=== PATIENT | female | born 1945 | race Caucasian/White ===

== ENCOUNTER 2017-08-15 09:02 | Emergency (ER) | payer OTHER ==
[~2017-08-15] VITALS: Ht 167.6 cm; Wt 108.9 kg
[~2017-08-15 09:02] MED LIST: BACL10; BENA20 PO; Desyrel50 MG; ESCI20 PO; FURO20 PO; Flonase 0.05% N16 GM; GABA600 PO; METPRE4DP PO; MONT10T PO; OMEPRAZOLE MAGN20 MG; PREG75 PO; QVAR7.3 G1 IH; SIMV40 PO
[2017-08-15] MEDS ORDERED: OXYC1TAB11 PO (09:57)
[2017-08-15] MEDS ORDERED: Percocet 10-321 EACH PO (10:39)
[2018-05-29] MEDS ORDERED: BENA20 (09:19)
== END 2017-08-15 10:51 | disposition home or self-care (01) ==
LOC: ER 09:02
DX: M51.36 Other intervertebral disc degeneration, lumbar region (principal); R20.8 Other disturbances of skin sensation; G89.29 Other chronic pain; Z79.891 Long term (current) use of opiate analgesic; Z79.899 Other long term (current) drug therapy; Z98.890 Other specified postprocedural states; Z98.51 Tubal ligation status; Z87.891 Personal history of nicotine dependence
CPT/HCPCS: 93971; 99284

== ENCOUNTER 2020-04-23 08:06 | Day surgery (SDC) | payer OTHER ==
[~2020-04-23 08:06] MED LIST changes: +BENA20; +OXYC1TAB11 PO; +Percocet 10-321 EACH PO
--- NOTE | 2020-04-23 08:49 | NUR ---
Ambulatory in Day Surgery. History, Chart, Medications and Allergies reviewed before start of procedure. Pre-Op teaching done. Pt verbalizes understanding. HR 60-62. iv placed right AC
--- NOTE | 2020-04-23 09:10 | NUR ---
TO CT, HR STABLE AT THIS TIME.
--- NOTE | 2020-04-23 09:16 | NUR ---
CT CX PER RADIOLOGIST.
--- NOTE | 2020-04-23 09:33 | NUR ---
Discharge instructions reviewed with patient. Patient verbalizes understanding. Copy given to patient to take home. Pt ambulated to private car.
== END 2020-04-23 22:36 | disposition home or self-care (01) ==
LOC: CT 08:06 → ORD 08:06 → CT 09:00 → ORD 22:36
DX: I25.10 Atherosclerotic heart disease of native coronary artery without angina pectoris (principal); I11.9 Hypertensive heart disease without heart failure; E78.5 Hyperlipidemia, unspecified; J45.909 Unspecified asthma, uncomplicated; Z79.899 Other long term (current) drug therapy; Z87.891 Personal history of nicotine dependence; Z88.8 Allergy status to other drugs, medicaments and biological substances
CPT/HCPCS: 75571

== ENCOUNTER 2020-05-21 06:47 | Day surgery (SDC) | payer OTHER ==
[~2020-05-21] VITALS: Ht 167.6 cm; Wt 109.0 kg
[~2020-05-21 06:47] MED LIST changes: -BACL10; +BACL10 PO; -BENA20; +PREG100 PO; -PREG75 PO
[2020-05-21] MEDS ORDERED: ASPI81CH PO (07:25)
[2020-05-21] MEDS ORDERED: ATOR40TA PO (07:26)
[2020-05-21] MEDS ORDERED: METO25ER PO (07:26)
[2020-05-21] MEDS ORDERED: NITR.4SL SL (07:27)
[2020-05-21] MEDS ORDERED: PROAIR RESPICL90 MCG INH (07:30)
[2020-05-21] MEDS ORDERED: Triamcinolone A15 G4 TOP (07:31)
[2020-05-21] MEDS ORDERED: IPRAT-ALBUT 0.5-3 ML INH (07:32)
[2020-05-21] MEDS ORDERED: VOLTAREN ARTHRI20 GM TOP (07:33)
--- NOTE | 2020-05-21 09:46 | NUR ---
DR JARQUIN AT BEDSIDE TO DISCUSS IMAGING RESULTS WITH PATIENT AND SON.
--- NOTE | 2020-05-21 10:43 | NUR ---
TR BAND DEFLATION STARTED, 4 CC AIR REMOVED, TR BAND REMAINS ON RIGHT WRIST. PT HAS DENIES ANY NEEDS AT THIS TIME. VSS. CALL LIGHT IN REACH.
--- NOTE | 2020-05-21 11:00 | NUR ---
TR BAND FULLY DEFLATED, SITE APPEARS SOFT NON TENDER WITH NO ACTIVE EXTERNAL BLEEDING, WILL CONTINUE TO MONITOR.
--- NOTE | 2020-05-21 11:51 | NUR ---
TR BAND REMOVED FROM RIGHT WRIST, RED CLOTH DOT DRESSING APPLIED. ARM BOARD AND SLING ON RIGHT ARM/WRIST. SITE SOFT NON TENDER WITH NO ACTIVE BLEEDING, OOZING, OR PAIN NOTED. IV REMOVED FROM LAC WITH CATH INTACT, PRESSURE DRESSING APPLIED. PT SON HERE TO DRIVE HER HOME, FOLLOW UP APT RESCHEDULED FOR TOMORROW SO PT AND SON CAN DISCUSS PLAN OF CARE WITH CEZAR SUAREZ NP. ENCOURAGED TO FOLLOW UP SCHEDULED. TAKEN OUT TO PRIVATE VEHICLE VIA W/C. NO ACUTE DISTRESS NOTED AT TIME OF DISCHARGE.
== END 2020-05-21 12:05 | disposition home or self-care (01) ==
LOC: MHTC 06:47
PROC: B201YZZ Plain Radiography of Multiple Coronary Arteries using Other Contrast (ICD-10-PCS; principal; 2020-05-21)
PROC: 4A023N7 Measurement of Cardiac Sampling and Pressure, Left Heart, Percutaneous Approach (ICD-10-PCS; principal; 2020-05-21)
DX: I25.118 Atherosclerotic heart disease of native coronary artery with other forms of angina pectoris (principal); I25.82 Chronic total occlusion of coronary artery; J45.909 Unspecified asthma, uncomplicated; E78.5 Hyperlipidemia, unspecified; I11.9 Hypertensive heart disease without heart failure; M47.9 Spondylosis, unspecified; Z79.899 Other long term (current) drug therapy; Z79.82 Long term (current) use of aspirin; Z87.891 Personal history of nicotine dependence; Z88.8 Allergy status to other drugs, medicaments and biological substances
CPT/HCPCS: 76937; 85347; 93005; 93010; 93458; 99152; C1769; C1894; J1644; J2250; J3010; J7030; J7050; Q9967

== ENCOUNTER 2020-08-01 13:51 | Emergency (ER) | payer OTHER ==
[~2020-08-01] VITALS: Ht 167.6 cm; Wt 104.3 kg
[~2020-08-01 13:51] MED LIST changes: +ASPI81CH PO; +ATOR40TA PO; +IPRAT-ALBUT 0.5-3 ML INH; +METO25ER PO; +NITR.4SL SL; +PROAIR RESPICL90 MCG INH; +Triamcinolone A15 G4 TOP; +VOLTAREN ARTHRI20 GM TOP
[2020-08-01 14:49] LABS: BASOPHILS PERCENT AUTO 1 % (0-2); EOSINOPHILS ABSOLUTE AUTO 1.18 K/mm3 (0.00-0.68); EOSINOPHILS PERCENT AUTO 14 % (0-6); Hematocrit 37.9 % (33.0-51.0); Hemoglobin 11.5 g/dL (11.5-16.0); IMMATURE GRAN ABSOLUTE AUTO 0.01 K/mm3 (0.00-0.10); IMMATURE GRAN PERCENT AUTO 0 % (0-1); LYMPHOCYTES ABSOLUTE AUTO 1.51 K/mm3 (0.84-5.20); LYMPHOCYTES PERCENT AUTO 18 % (21-46); MONOCYTES ABSOLUTE AUTO 0.78 K/mm3 (0.16-1.47); MONOCYTES PERCENT AUTO 9 % (4-13); Mean Corpuscular HGB 27.6 pg (26.0-34.0); Mean Corpuscular HGB Conc 30.3 g/dL (31.5-36.5); Mean Corpuscular Volume 91 fL (80-100); NEUTROPHILS ABSOLUTE AUTO 4.81 K/mm3 (1.96-9.15); NEUTROPHILS PERCENT AUTO 57 % (41-73); Platelet Count 419 K/mm3 (150-400); RDW Coefficient Variation 13.2 % (11.7-14.2); RDW Standard Deviation 44.7 fL (35.1-46.3); Red Blood Cell Count 4.16 M/mm3 (3.80-5.20); White Blood Cell Count 8.39 K/mm3 (4.00-11.30)
[2020-08-01 15:21] LABS: Alanine Aminotransfer (ALT/SGP 16 U/L (12-78); Albumin, Blood 3.1 g/dL (3.4-5.0); Albumin/Globulin Ratio 0.9 (0.8-1.8); Alk Phos 116 U/L (50-136); Anion Gap 5 mmol/L (6-16); Aspartate Aminotrans (AST/SGOT 12 U/L (12-37); Bilirubin, Total 0.9 mg/dL (0.1-1.0); Blood Urea Nitrogen 12 mg/dL (8-24); Bun/Creatinine Ratio 17.3 (12.0-20.0); CO2, Blood 28 mmol/L (21-32); Calcium, Blood 9.2 mg/dL (8.5-10.1); Chloride, Blood 107 mmol/L (98-108); Creatinine, Blood 0.69 mg/dL (0.40-1.00); Globulin, Blood 3.5 g/dL (2.2-4.0); Glomerular Filtration Rate >60 (60-); Glucose, Blood 99 mg/dL (70-99); Sodium, Blood 140 mmol/L (136-145); Total Protein, Blood 6.6 g/dL (6.4-8.2); Troponin I <0.015 ng/mL (0.000-0.040)
[2020-08-01] MEDS ORDERED: NITR.4SL TD (17:17)
[2020-08-01] MEDS ORDERED: MELO7.5 PO (17:18)
== END 2020-08-01 18:03 | disposition home or self-care (01) ==
LOC: ER 13:51
PROVIDERS: Physician Assistant
DX: R00.2 Palpitations (principal); R06.00 Dyspnea, unspecified; Z79.82 Long term (current) use of aspirin; Z79.51 Long term (current) use of inhaled steroids; Z95.1 Presence of aortocoronary bypass graft; Z79.899 Other long term (current) drug therapy; Z87.891 Personal history of nicotine dependence
CPT/HCPCS: 36415; 71046; 80053; 84484; 85025; 93005; 93010; 99285-25

== ENCOUNTER 2021-07-30 08:37 | Inpatient (IN) | payer OTHER ==
[~2021-07-30] VITALS: Ht 162.6 cm; Wt 117.3 kg
[~2021-07-30 08:37] MED LIST changes: +MELO7.5 PO; +NITR.4SL TD
[2021-07-30 08:54] LABS: Bicarbonate Venous 19.8 mmol/L (24.0-30.0); PO2 Venous 37.2 mmHg (38-42); pH Blood Venous 7.21 (7.34-7.37)
[2021-07-30 09:05] LABS: BASOPHILS ABSOLUTE AUTO 0.06 K/mm3 (0.00-0.23); BASOPHILS PERCENT AUTO 1 % (0-2); EOSINOPHILS ABSOLUTE AUTO 0.03 K/mm3 (0.00-0.68); EOSINOPHILS PERCENT AUTO 1 % (0-6); Hematocrit 42.3 % (33.0-51.0); Hemoglobin 12.8 g/dL (11.5-16.0); IMMATURE GRAN ABSOLUTE AUTO 0.02 K/mm3 (0.00-0.10); IMMATURE GRAN PERCENT AUTO 0 % (0-1); LYMPHOCYTES ABSOLUTE AUTO 0.97 K/mm3 (0.84-5.20); LYMPHOCYTES PERCENT AUTO 15 % (21-46); MONOCYTES ABSOLUTE AUTO 0.45 K/mm3 (0.16-1.47); MONOCYTES PERCENT AUTO 7 % (4-13); Mean Corpuscular HGB 29.1 pg (26.0-34.0); Mean Corpuscular HGB Conc 30.3 g/dL (31.5-36.5); Mean Corpuscular Volume 96 fL (80-100); NEUTROPHILS ABSOLUTE AUTO 4.89 K/mm3 (1.96-9.15); NEUTROPHILS PERCENT AUTO 76 % (41-73); Platelet Count 312 K/mm3 (150-400); RDW Coefficient Variation 13.8 % (11.7-14.2); RDW Standard Deviation 49.2 fL (35.1-46.3); White Blood Cell Count 6.42 K/mm3 (4.00-11.30)
[2021-07-30 09:25] LABS: Calcium, Ionized (POC) 1.19 mmol/L (1.10-1.46); Chloride (POC) 107 mmol/L (98-108); Glucose (ISTAT POC) 109 mg/dL (70-99); Hemoglobin (POC) 12.2 g/dL (12.0-16.0); Potassium (POC) 3.2 mmol/L (3.5-5.5); Sodium (POC) 141 mmol/L (135-148); Total CO2 (POC) 23 mmol/L (21-32)
[2021-07-30 09:27] LABS: BAND PERCENT MAN 34 % (0-8); BASOPHILS ABSOLUTE MAN 0.06 K/mm3 (0.00-0.23); BASOPHILS PERCENT MAN 1 % (0-2); EOSINOPHILS PERCENT MAN 0 % (0-6); LYMPHOCYTES PERCENT MAN 11 % (21-46); METAMYELOCYTE ABSOLUTE MAN 0.12 K/mm3 (0.00-0.00); METAMYELOCYTE PERCENT MAN 2 % (0-0); MONOCYTES ABSOLUTE MAN 0.25 K/mm3 (0.16-1.47); MONOCYTES PERCENT MAN 4 % (4-13); MYELOCYTE ABSOLUTE MAN 0.32 K/mm3 (0.00-0.00); MYELOCYTE PERCENT MAN 5 % (0-0); NEUTROPHILS ABSOLUTE MAN 4.94 K/mm3 (1.96-9.15); SEG NEUTROPHILS PERCENT MAN 43 % (41-73); TOTAL CELLS COUNTED 100
[2021-07-30 09:36] LABS: Albumin, Blood 2.7 g/dL (3.4-5.0); Albumin/Globulin Ratio 0.8 (0.8-1.8); Bun/Creatinine Ratio 13.9 (12.0-20.0); Calcium, Blood 8.8 mg/dL (8.5-10.1); Creatine Kinase MB 14.5 ng/mL (0.0-3.6); Creatinine, Blood 1.87 mg/dL (0.40-1.00); Globulin, Blood 3.2 g/dL (2.2-4.0); Total Protein, Blood 5.9 g/dL (6.4-8.2)
[2021-07-30 09:40] LABS: Troponin I 0.515 ng/mL (0.000-0.040)
[2021-07-30 10:02] LABS: Source, Urine Catheter
[2021-07-30 10:05] LABS: Appearance, Urine Cloudy (Clear); Bilirubin, Urine Neg (Neg); Blood, Urine 1+ (Neg); Color, Urine Yellow (P-Yellow); Glucose Qualitative, Urine Neg (Neg); Ketones, Urine Neg (Neg); Leukocyte Esterase, Urine 2+ (Neg); Nitrite, Urine Neg (Neg); Protein, Urine 2+ (Neg); Specific Gravity, Urine 1.015 (1.003-1.022); Urobilinogen, Urine NORM (Normal)
[2021-07-30 10:10] LABS: Influenza A, PCR NEGATIVE (NEGATIVE); Influenza B, PCR NEGATIVE (NEGATIVE); Resp Syncytial Virus, PCR NEGATIVE (NEGATIVE); SARS-Cov-2 (COVID-19) PCR, MMC NEGATIVE (NEGATIVE)
[2021-07-30 10:33] LABS: Red Blood Cells, Urine 0-2 /hpf (0-2); Squamous Epithelial Cells Few /hpf (Few)
[2021-07-30 10:34] LABS: Bacteria Mod /hpf; Mucus Light (0-Heavy)
[2021-07-30 10:36] LABS: U Amphetamine Screen Not Detected; U Barbituate Screen Not Detected; U Benzodiazapine Screen Not Detected; U Buprenorphine Screen Not Detected; U Cannabinoids Screen Not Detected; U Cocaine Screen Not Detected; U Methadone Screen Not Detected; U Methamphetamine Screen Not Detected; U Opiates Screen Not Detected; U Oxycodone Screen DETECTED; U Phencyclidine Screen Not Detected; U Propoxyphene Screen Not Detected
--- NOTE | 2021-07-30 11:54 | NUR ---
APPROX 1045- PT PLACED ON BIPAP PER DR ORDER. SETTINGS: 14/6, 801%, f12, IT 1.0, RISE 2 ACT: VT 462, f14, MINV 6.9, PIP 16, PT TRIG 2 ALARMS: 40/10, 1500/200, HIP 30/4 LMINV 4.0, LIP 20 O2 SAT= 96% BS= DIFFUSE T/O. NO WHEEZES. PT CHAR MED MASK. RNS AT BEDSIDE.
--- NOTE | 2021-07-30 12:26 | NUR ---
Spoke to pt's grandson Brady, he lives in [facility] currently. He states he pt's next of kin, as she is estranged from both of her children "at no fault of hers" according to Brady. He also tells me he's noticed some slight memory changes recently. He states she takes pain medication for her back, but "not often, and hates taking them". He states she is taking care of her boyfriend who is on hospice. He thinks this is causing a lot of extra strain and pressure on her, and she isn't taking care of herself as well lately. He will be waiting to hear from hospital staff before deciding when or if he will come up to [place]. Palliative care will remain involved in this case as needed.
--- NOTE | 2021-07-30 13:22 | NUR ---
Face sheet updated to reflect correct contacts.
--- NOTE | 2021-07-30 14:45 | NUR ---
Echocardioghram using 0.50ml of Definity contrast performed.
[2021-07-30 16:12] LABS: PCO2 Venous 57.7 mmHg (38-42)
[2021-07-30 16:13] LABS: Base Excess Venous -5.7 mmol/L; Bicarbonate Venous 19.4 mmol/L (24.0-30.0)
--- NOTE | 2021-07-30 18:18 | NUR ---
Placed a call to pt's roommate, Zandra. She reports being "very close to Josy", and states they've been roommatees of quite some time. Zandra reports that pt's boyfriend Jadiel, who is on hospice, has been taken in by pt's friends, Denis and Yvonne. Zandra asks we let pt know that her boyfriend is ok when she is more coherent. Will remain available.
--- NOTE | 2021-07-30 19:47 | NUR ---
ASSUMED CARE OF PT AT 1915. REPORT RECEIVED AT BEDSIDE. PT CONTINUES ON NARCAN AT 2.6 MG PER HOUR, LEVOPHED AT 4 MCG'S PER MIN, VASOPRESSIN FOR BLOOD PRESSURE SUPPORT. PT WEARING BIPAP AT THIS TIME. MAINTAINS > 90 PERCENT SATURATION. WILL REVIEW CHART AND PLAN OF CARE.
--- NOTE | 2021-07-30 22:01 | NUR ---
PT, UNFORTUNATELY, VOMITS. WAS ABLE TO CLEAR WITH YAUNKEUR. PT DOES HAVE WEAK COUGH. UNCERTAIN IF SHE ASPIRATED ANY. DID CHANGE PT OFF BIPAP TO OXIMIZER. GOOD ORAL CARE DONE. DID PLACE 16 GERMAN NGT AND PLACED TO LOW WALL SUCTION. HAVE BEEN ABLE TO SLOWLY TITRATE NARCAN DRIP DOWN TO 1.5 MG/HOUR. OF NOTE: WHEN PT VOMITED, THIS RN AND ACCOUNTANCY PROFESSOR WAS AT BEDSIDE. PT ON OXIMIZER AT 6 L/M. PLACE TO MOUTH. PT MAINTAINS SATURATIONS > 93 PERCENT. PHONE CALL RECEIVED FROM PT'S NEIGHBOR - CORNELIA. AND PT'S DAUGHTER - JARED. LIMITED TO NO RECLEASE OF INFORMATION BEING SIGNED, AND PT BEING UNABLE TO GIVE CONSENT. WAS NOT ABLE TO GIVE UPDATE. PT'S DAUGHTER, JARED, STATES THAT HER SON (PT'S GRANDSON) WOULD BE THE APPROPRIATE PERSON FOR CONSENTS. PT OFF VASOPRESSIN AT THIS TIME. LEVOPHED AT 6 MCG'S/MIN. WILL TITRATE FURTHER ABLE.
[2021-07-30 23:13] LABS: Stool Occult Blood Guaiac 1 Pos (Neg)
--- NOTE | 2021-07-31 02:31 | NUR ---
HAVE BEEN ABLE TO TITRATE NARCAN TO OFF. PT DOES AWAKEN AND ASK FOR WATER. DOES NOT FOLLOW COMMANDS OR OPEN EYES. WILL MONITOR PT. LEVOPHED AT 10 MCG'S/MIN. PT MAINTAINS MAP > 65.
[2021-07-31 05:05] LABS: Hematocrit 36.5 % (33.0-51.0); Hemoglobin 11.1 g/dL (11.5-16.0); Mean Corpuscular HGB 28.3 pg (26.0-34.0); Mean Corpuscular HGB Conc 30.4 g/dL (31.5-36.5); Mean Corpuscular Volume 93 fL (80-100); Mean Platelet Volume 9.6 fL (9.1-12.4); Platelet Count 242 K/mm3 (150-400); RDW Coefficient Variation 14.2 % (11.7-14.2); RDW Standard Deviation 48.4 fL (35.1-46.3); Red Blood Cell Count 3.92 M/mm3 (3.80-5.20); White Blood Cell Count 13.07 K/mm3 (4.00-11.30)
[2021-07-31 05:15] LABS: PCO2 Arterial 46.1 mmHg (35-45); PO2 Arterial 73.6 mmHg (80-100); pH Blood Arterial 7.32 (7.35-7.45)
--- NOTE | 2021-07-31 05:43 | NUR ---
NO FURTHER EPISODES OF NAUSEA NOTED FROM PT. NGT HAS DRAINED APPROX 100 ML GREEN COLORED LIQUID. PT HAS BEEN BECOME MORE AWAKE AND LUCCID. IS ABLE TO STATE SHE IS AT THE HOSPITAL. CALL FROM PT'S DAUGHTER JARED RECEIVED TO CHECK ON PT. PT DOES GIVE VERBAL CONSENT FOR RELEASE OF INFO TO JARED AND GRANDSON SOHEILA. WILL CONTINUE TO MONITOR PT, AND WILL REPORT OFF TO ONCOMING RN.
[2021-07-31 06:09] LABS: Alanine Aminotransfer (ALT/SGP 69 U/L (12-78); Albumin, Blood 2.1 g/dL (3.4-5.0); Albumin/Globulin Ratio 0.7 (0.8-1.8); Alk Phos 68 U/L (50-136); Anion Gap 6 mmol/L (6-16); Aspartate Aminotrans (AST/SGOT 118 U/L (12-37); Blood Urea Nitrogen 33 mg/dL (8-24); Bun/Creatinine Ratio 23.2 (12.0-20.0); CO2, Blood 23 mmol/L (21-32); Chloride, Blood 114 mmol/L (98-108); Creatinine, Blood 1.42 mg/dL (0.40-1.00); Globulin, Blood 2.9 g/dL (2.2-4.0); Glomerular Filtration Rate 36 (60-); Glucose, Blood 123 mg/dL (70-99); Phosphorus, Blood 4.2 mg/dL (2.5-4.9); Potassium, Blood 4.4 mmol/L (3.5-5.5); Sodium, Blood 143 mmol/L (136-145); Vancomycin, Random 11.4 ug/mL
[2021-07-31 07:12] LABS: BAND PERCENT MAN 39 % (0-8); BASOPHILS PERCENT MAN 0 % (0-2); EOSINOPHILS PERCENT MAN 0 % (0-6); LYMPHOCYTES ABSOLUTE MAN 0.65 K/mm3 (0.84-5.20); LYMPHOCYTES PERCENT MAN 5 % (21-46); METAMYELOCYTE ABSOLUTE MAN 1.04 K/mm3 (0.00-0.00); METAMYELOCYTE PERCENT MAN 8 % (0-0); MONOCYTES ABSOLUTE MAN 1.04 K/mm3 (0.16-1.47); MONOCYTES PERCENT MAN 8 % (4-13); MYELOCYTE ABSOLUTE MAN 0.26 K/mm3 (0.00-0.00); MYELOCYTE PERCENT MAN 2 % (0-0); NEUTROPHILS ABSOLUTE MAN 10.06 K/mm3 (1.96-9.15); SEG NEUTROPHILS PERCENT MAN 38 % (41-73); TOTAL CELLS COUNTED 100
--- NOTE | 2021-07-31 18:28 | NUR ---
MEDICAL POA IS KAITLYNN GILMORE/FRIEND #[phone] SEE RECENT POLST/AD ON CHART - I was called to ICU to clarify who pt's surrogate medical decision maker is as grandson is listed as NOK and pt's children are estranged. There is an old AD on file from 2016, naming pt's former (who is currently on hospice and incapacitated) and another person who has not been in contact. Friend Kaitlynn contacted pt's nurse and provided faxed POLST and AD that has been completed in June of 2021. All of above communicated to RN and I spoke to Kaitlynn Gilmore on the phone to have her read contents of POLST and AD before she was able to fax it to us. Pt has been consistent in both AD in her wishes. She only changed her decision maker to Kaitlynn, since her former is not able to fulfill that role any longer. Kaitlynn wanted to be sure and confirm DNR status, NO CPR, NO intubation desired, no feeding tube per pt's AD for many years. Currently pt's orders are consistent with her documented wishes and Kaitlynn was informed of this. I gave Kaitlynn an updated on pt's status and explained the chain of events leading to hospitalization and ICU stay as we understand them. Kaitlynn was very appreciative and will update grand son and other family members, per pt's wishes. She reiterated that pt does not want information provided to either of her estranged children. Case conferenced with Dr Van, nursing re: all of above.
[2021-07-31] MEDS ORDERED: BACL10 PO (23:05)
[2021-08-01 05:20] LABS: BASOPHILS ABSOLUTE AUTO 0.11 K/mm3 (0.00-0.23); BASOPHILS PERCENT AUTO 1 % (0-2); Hematocrit 30.8 % (33.0-51.0); Hemoglobin 9.4 g/dL (11.5-16.0); LYMPHOCYTES ABSOLUTE AUTO 0.75 K/mm3 (0.84-5.20); LYMPHOCYTES PERCENT AUTO 6 % (21-46); MONOCYTES ABSOLUTE AUTO 0.48 K/mm3 (0.16-1.47); MONOCYTES PERCENT AUTO 4 % (4-13); Mean Corpuscular HGB 28.8 pg (26.0-34.0); Mean Corpuscular HGB Conc 30.5 g/dL (31.5-36.5); Mean Corpuscular Volume 95 fL (80-100); Mean Platelet Volume 9.9 fL (9.1-12.4); Platelet Count 167 K/mm3 (150-400); RDW Coefficient Variation 14.3 % (11.7-14.2); RDW Standard Deviation 50.1 fL (35.1-46.3); Red Blood Cell Count 3.26 M/mm3 (3.80-5.20); White Blood Cell Count 11.66 K/mm3 (4.00-11.30)
[2021-08-01 05:34] LABS: EOSINOPHILS ABSOLUTE AUTO 0.12 K/mm3 (0.00-0.68); EOSINOPHILS PERCENT AUTO 1 % (0-6); IMMATURE GRAN ABSOLUTE AUTO 1.33 K/mm3 (0.00-0.10); IMMATURE GRAN PERCENT AUTO 11 % (0-1); NEUTROPHILS ABSOLUTE AUTO 8.87 K/mm3 (1.96-9.15); NEUTROPHILS PERCENT AUTO 76 % (41-73)
--- NOTE | 2021-08-01 05:38 | NUR ---
SHIFT SUMMERY: NO ACUTE CHANGES OVERNIGHT. LEVOPHED HAS BEEN TITRATED TO OFF AT THIS TIME WITH PT MAINTAINING MAPS>65. SHE IS ALERT BUT CONFUSED. SHE DID PULL OUT HER NG TUBE BUT HAS HAD NO VOMITING OR COMPLAINTS OF NAUSEA. SHE WILL FOLLOW COMMANDS BUT HAS TO BE REMINDED FREQUENTLY OF THE ANSWERS TO QUESTIONS SHE HAS ASKED MANY TIMES. NO ACUTE DISTRESS OVERNIGHT.
[2021-08-01 05:39] LABS: BAND PERCENT MAN 13 % (0-8); BASOPHILS PERCENT MAN 0 % (0-2); EOSINOPHILS PERCENT MAN 0 % (0-6); LYMPHOCYTES ABSOLUTE MAN 0.81 K/mm3 (0.84-5.20); LYMPHOCYTES PERCENT MAN 7 % (21-46); METAMYELOCYTE ABSOLUTE MAN 0.69 K/mm3 (0.00-0.00); METAMYELOCYTE PERCENT MAN 6 % (0-0); MONOCYTES ABSOLUTE MAN 0.34 K/mm3 (0.16-1.47); MONOCYTES PERCENT MAN 3 % (4-13); NEUTROPHILS ABSOLUTE MAN 9.79 K/mm3 (1.96-9.15); SEG NEUTROPHILS PERCENT MAN 71 % (41-73); TOTAL CELLS COUNTED 100
[2021-08-01 05:49] LABS: Albumin, Blood 2.3 g/dL (3.4-5.0); Anion Gap 4 mmol/L (6-16); Blood Urea Nitrogen 24 mg/dL (8-24); Bun/Creatinine Ratio 28.6 (12.0-20.0); CO2, Blood 27 mmol/L (21-32); Calcium, Blood 8.5 mg/dL (8.5-10.1); Chloride, Blood 116 mmol/L (98-108); Creatinine, Blood 0.84 mg/dL (0.40-1.00); Glomerular Filtration Rate >60 (60-); Glucose, Blood 86 mg/dL (70-99); Phosphorus, Blood 2.2 mg/dL (2.5-4.9); Potassium, Blood 4.2 mmol/L (3.5-5.5); Sodium, Blood 147 mmol/L (136-145); Vancomycin, Random 9.2 ug/mL
--- NOTE | 2021-08-01 08:00 | NUR ---
ASSUMED CARE RECEIVED REPORT FROM ALLY ALBARRAN AT 0700. PT IS ALERT AND ORIENTED TO SELF AND PLACE ONLY. VERY SLOW TO RESPOND AND HAS TO BE REORIENTED AND REDIRECTED OFTEN. SHE BECOMES VERY IRRITABLE AND ASKS FOR A DRINK OF WATER, BUT IS CURRENTLY NPO. PO MEDS HELD AT THIS TIME. DR. MANCIA AT BEDSIDE AND ORDERED SPEECH EVAL. NARCAN GTT AT 2MG/HR. SPO2 >96% ON 3L VIA NC, LUNGS ARE CLEAR BUT DIMINISHED IN BASES. HR IS SINUS COBY TO SINUS RHYTHM 50-60'S. BP IS NORMOTENSIVE, MAP >65. ABDOMEN IS OBESE AND SOFT, BOWEL TONES HYPOACTIVE. RECTAL TUBE PATENT, DRAINING LIQUID DARK BROWN STOOL TO GRAVITY. CEDENO PATENT, DRAINING CLEAR YELLOW URINE TO GRAVITY. SKIN OVERALL C/D/I, BUT DOES HAVE SCATTERED BRUISING ON ARMS, AND A BANDAID TO LEFT FOREARM. ORDERS REVIEWED AND WILL TREAT PRESCRIBED.
--- NOTE | 2021-08-01 12:56 | NUR ---
PT'S POA, CORNELIA, CALLED AND RECEIVED UPDATE. SHE STATED SONNY HAS BASELINE DIFFICULTY WITH REMEMBERING HER TRAIN OF THOUGHT AND IS FORGETFUL. MEDICATION LIST OBTAINED AND GLAUCOMA GTT'S ORDERED.
--- NOTE | 2021-08-01 14:01 | NUR ---
PT TRANSPORTED TO CT FOR CT OF HEAD AT 1310, RETURNED TO ROOM AT 1335. VITALS STABLE AT THIS TIME.
--- NOTE | 2021-08-01 17:57 | NUR ---
PT REMAINED AWAKE T/O MOST OF THE DAY. SHE IS BECOMING MORE ALERT AND ORIENTED THE DAY PROGRESSES. NARCAN GTT HAS REMAINED OFF PREVIOUSLY CHARTED. SHE IS PLEASANT AND COOPERATIVE, ABLE TO FOLLOW COMMANDS, BUT IS VERY WEAK. HAS DIFFICULTY REMEMBERING WHAT SHE WAS TRYING TO SAY, WHICH IS APPARENTLY BASELINE FOR HER ACCORDING TO CORNELIA, HER POA. AFEBRILE T/O SHIFT. 3L O2 VIA NC REMAINS ON, SPO2 >95%, LUNGS DIM IN BASES. HR REMAINED SR TO SB, 50-70'S, BP NORMOTENSIVE T/O ENTIRE SHIFT, MAP >65. 300ML LIQUID, GREEN/BROWN STOOL OUT OF RECTAL TUBE, REMAINS PATENT AND DRAINING TO GRAVITY. CEDENO PATENT, 700ML OUT DARK YELLOW CLEAR URINE. PT CURRENTLY RESTING. WILL REPORT TO ONCOMING SHIFT.
--- NOTE | 2021-08-01 19:00 | NUR ---
ASSUMED CARE ASSUMED CARE OF PATIENT. AWAKE AND ALERT. ORIENTED TO SELF AND TO PLACE. STATES THAT IT IS 1983. NOT AWARE OF EVENTS BRINGING HER TO THE HOSPITAL. COOPERATIVE WITH CARE. ASSISTS WITH REPOSITIONING IN BED. MOVES ALL EXTREMITIES. COOPERATIVE WITH CARE. SPEECH IS CLEAR, BUT RESPONSE IS SLOW. ALSO SEEMS TO HAVE DIFFICULTY IN FINDING HER WORDS, BUT IS ABLE TO MAKE HER NEEDS KNOWN. DENIES C/O PAIN. DENIES INTENT TO HARM SELF NOW OR IN THE PAST. MONITOR SHOWS NSR, RATE 70s. REMAINS ON 2L NC. SLIGHTLY TACHYPNEIC, 26-28. RESPIRATIONS EVEN AND UNLABORED. DENIES C/O SOB/DYSPNEA. CEDENO PATENT AND DRAINING YELLOW URINE. RECTAL TUBE IN PLACE- DRAINING GREENISH-BROWN LIQUID STOOL. LR INFUSING AT 60CC/HR. SEE SHIFT ASSESSMENT FOR FULL ASSESSMENT.
[2021-08-02 05:02] LABS: Hematocrit 30.6 % (33.0-51.0); Hemoglobin 9.5 g/dL (11.5-16.0); Mean Corpuscular HGB 29.1 pg (26.0-34.0); Mean Corpuscular Volume 94 fL (80-100); Mean Platelet Volume 10.7 fL (9.1-12.4); Platelet Count 186 K/mm3 (150-400); RDW Standard Deviation 48.2 fL (35.1-46.3); Red Blood Cell Count 3.26 M/mm3 (3.80-5.20); White Blood Cell Count 13.29 K/mm3 (4.00-11.30)
[2021-08-02 05:50] LABS: Albumin, Blood 2.1 g/dL (3.4-5.0); Anion Gap 7 mmol/L (6-16); Blood Urea Nitrogen 24 mg/dL (8-24); Bun/Creatinine Ratio 36.2 (12.0-20.0); CO2, Blood 26 mmol/L (21-32); Calcium, Blood 8.4 mg/dL (8.5-10.1); Chloride, Blood 114 mmol/L (98-108); Creatinine, Blood 0.66 mg/dL (0.40-1.00); Glomerular Filtration Rate >60 (60-); Glucose, Blood 80 mg/dL (70-99); Phosphorus, Blood 2.3 mg/dL (2.5-4.9); Potassium, Blood 4.1 mmol/L (3.5-5.5); Sodium, Blood 147 mmol/L (136-145)
--- NOTE | 2021-08-02 06:08 | NUR ---
SHIFT SUMMARY NO ACUTE CHANGES DURING NOC. SLEPT INTERMITTENTLY. ROUSES EASILY TO STIMULI. CONTINUES TO BE ORIENTED TO SELF AND PLACE, BUT NOT TO DATE/TIME OR EVENTS. CONTINUES WITH SLOWED VERBAL RESPONSE AND DIFFICULTY WITH FINDING WORDS, BUT DOES SEEMED SOMEWHAT IMPROVED T/O NOC. MOVES ALL EXTREMITES AND ATTEMPTS TO ASSIST WITH REPOSTIONING. TOLERATING ICE CHIPS AND SPOONFULS OF H20 WITHOUT SIGNS OF ASPIRATION. CEDENO PATENT AND DRAINING TO GRAVITY. RECTAL TUBE IN PLACE, BUT OUTPUT HAS DECREASED. LR INFUSING AT 60CC/HR PER ORDER. WILL REPORT TO ONCOMING RN WHEN AVAILABLE.
[2021-08-02 06:18] LABS: BAND PERCENT MAN 16 % (0-8); BASOPHILS PERCENT MAN 0 % (0-2); EOSINOPHILS ABSOLUTE MAN 0.26 K/mm3 (0.00-0.68); EOSINOPHILS PERCENT MAN 2 % (0-6); LYMPHOCYTES ABSOLUTE MAN 0.39 K/mm3 (0.84-5.20); LYMPHOCYTES PERCENT MAN 3 % (21-46); MONOCYTES ABSOLUTE MAN 1.06 K/mm3 (0.16-1.47); MONOCYTES PERCENT MAN 8 % (4-13); NEUTROPHILS ABSOLUTE MAN 11.56 K/mm3 (1.96-9.15); SEG NEUTROPHILS PERCENT MAN 71 % (41-73); TOTAL CELLS COUNTED 100
--- NOTE | 2021-08-02 07:52 | NUR ---
ASSUMED CARE RECEIVED REPORT FROM ALLY THAPA, AT 0700. PT ALERT AND ORIENTED X3. ABLE TO STATE MONTH AND YEAR. CONFUSION SEEMS TO BE IMPROVING SINCE YESTERDAY, SHE IS STILL SOMEWHAT SLOW TO RESPOND AND HAS DIFFICULTY FINDING HER WORDS/TRAIN OF THOUGHT. CONTINUES TO TAKE SPOONFULS OF WATER/LIQUIDS WITHOUT DIFFICULTY OR SIGNS OF ASPIRATION. LUNGS ARE DIMINISHED T/O, 2L NC, SPO2 >96%. SINUS RHYTHM TO SINUS COBY, RATE IN 50-60'S. BP STABLE, MAP >65. RECTAL TUBE PATENT, GREEN/BROWN LIQUID OUTPUT, DRAINING TO GRAVITY. CEDENO PATENT, DRAINING YELLOW CLEAR URINE TO GRAVITY. ORDERS REVIEWED AND WILL TREAT PRESCRIBED.
--- NOTE | 2021-08-02 10:24 | NUR ---
CALL PLACED TO DR. REED TO RESTART PATIENT'S HOME LONG-ACTING STEROID INHALER. ORDERS GIVEN TO RESTART SYMBICORT 160/4.5 2PUFFS BID. ALSO DISCUSSED PT HAVING FREQUENT DIARRHEA. ORDERS TO BE PLACED FOR IMMODIUM.
--- NOTE | 2021-08-02 18:34 | NUR ---
PT CONTINUES TO IMPROVE MENTATION/CONFUSION THE DAY PROGRESSED. A/O X4, HOWEVER IS STILL SLOW TO FIND WORDS/THOUGHTS AT TIMES. SHE WAS CONFUSED ABOUT A PHONE CALL SHE PLACED AND WAS VERY WORRIED ABOUT HER . HOWEVER, IT WAS FOUND OUT THE PERSON SHE CALLED WAS THE WRONG PERSON AND IT WAS DIFFICULT TO CALM/REASSURE HER THAT HER IS OKAY AND IS STAYING WITH THE CORRECT PERSON, TRICIA GARCIAS. OXYGEN HAS REMAINED ON AT 1-2L NC, CURRENTLY AT 2L NC AND SPO2 LAST CHECKED WAS 99%. DYSPNEA/SOB WITH EXERTION. SHE IS ABLE TO AMBULATE WITH WALKER FROM BED TO COMMODE AND TO CHAIR WELL, BUT REMAINS VERY WEAK AND REQUIRES MODERATE ASSISTANCE. HR REMAINED SINUS COBY IN UPPER 50'S. BP STABLE. SHE CONTINUES TO HAVE FREQUENT LIQUID BOWEL MOVEMENTS, BUT THEY HAVE SLOWED SINCE IMMODIUM X3. RIGHT IJ CENTRAL LINE REMOVED AND COVERED WITH PETROLEUM AND TEGADERM, NO SIGNS OF BLEEDING OR HEMATOMA. SHE REMAINED AFEBRILE T/O SHIFT. CURRENTLY BACK IN BED AND RESTING, WILL REPORT TO ONCOMING SHIFT.
--- NOTE | 2021-08-02 19:34 | NUR ---
ASSUMPTION OF CARE: REPORT GIVEN BY CLEO. PT IS ALERT AND ORIENTED AT TIME OF ASSESSMENT. MED NO TELE STATUS. NO COMPLAINTS OF PAIN OR DISCOMFORT, NO S/S OF ACUTE DISTRESS NOTED AT TIME OF ASSESSMENT. NO NEEDS EXPRESSED.
--- NOTE | 2021-08-02 21:40 | NUR ---
PT ARRIVED IN RM 232 FROM ICU WHERE SHE WAS TRANSFERRED FROM. AAO, ARRIVED BY WHEELCHAIR AND WAS ASSISTED WITH GOING TO BED WITH 2 ASSIST. NO PAIN AT THIS TIME. SHE WHEEZES BUT LUNG LOBES ARE CLEAR. SHE IS ENCOURAGED TO COUGH AND DEEP BREATHS FOR COMFORT AND RELIEF. SHE HAS ANKLE EDEMA, ASSISTED WITH LE ELEVATION WHILE IN BED FOR RELIEF. SHE IS ENCOURAGED TO PERFORMED ANKLE EXERCISES TO PROMOTE VENOUS RETURN. PT ASSISTED WITH HER CARE AND ADLS, MEDICATED WITH HER EYE DROPS INDICATED. HER CALL LANG PROVIDED TO HER AND URGED TO CALL FOR HELP WHEN ASSISTANCE IS NEEDED SHE IS MONITORED.
[2021-08-03 04:30] LABS: BASOPHILS PERCENT AUTO 1 % (0-2); EOSINOPHILS ABSOLUTE AUTO 0.62 K/mm3 (0.00-0.68); EOSINOPHILS PERCENT AUTO 7 % (0-6); Hematocrit 33.5 % (33.0-51.0); Hemoglobin 10.8 g/dL (11.5-16.0); IMMATURE GRAN ABSOLUTE AUTO 0.15 K/mm3 (0.00-0.10); IMMATURE GRAN PERCENT AUTO 2 % (0-1); LYMPHOCYTES ABSOLUTE AUTO 1.48 K/mm3 (0.84-5.20); LYMPHOCYTES PERCENT AUTO 16 % (21-46); MONOCYTES ABSOLUTE AUTO 0.97 K/mm3 (0.16-1.47); MONOCYTES PERCENT AUTO 11 % (4-13); Mean Corpuscular HGB 29.3 pg (26.0-34.0); Mean Corpuscular HGB Conc 32.2 g/dL (31.5-36.5); Mean Corpuscular Volume 91 fL (80-100); Mean Platelet Volume 10.7 fL (9.1-12.4); NEUTROPHILS ABSOLUTE AUTO 5.87 K/mm3 (1.96-9.15); NEUTROPHILS PERCENT AUTO 64 % (41-73); Platelet Count 181 K/mm3 (150-400); RDW Coefficient Variation 13.7 % (11.7-14.2); RDW Standard Deviation 46.3 fL (35.1-46.3); Red Blood Cell Count 3.69 M/mm3 (3.80-5.20); White Blood Cell Count 9.19 K/mm3 (4.00-11.30)
[2021-08-03 04:37] LABS: Albumin, Blood 2.1 g/dL (3.4-5.0); Anion Gap 7 mmol/L (6-16); Blood Urea Nitrogen 19 mg/dL (8-24); Bun/Creatinine Ratio 31.7 (12.0-20.0); CO2, Blood 26 mmol/L (21-32); Calcium, Blood 8.6 mg/dL (8.5-10.1); Chloride, Blood 112 mmol/L (98-108); Glomerular Filtration Rate >60 (60-); Glucose, Blood 86 mg/dL (70-99); Phosphorus, Blood 2.2 mg/dL (2.5-4.9); Potassium, Blood 3.2 mmol/L (3.5-5.5); Sodium, Blood 145 mmol/L (136-145)
--- NOTE | 2021-08-03 04:50 | NUR ---
Pt is in bed at this time where she remains much of the night and is resting comfortably. She is alert and oriented, condition is stable. She assisted with care and ADLs, assisted with toileting and bathroom needs. Pt denies pain at this time, call light placed near her and encouraged to call for help when assistance is needed as she is monitored.
--- NOTE | 2021-08-03 18:46 | NUR ---
SUMMARY: NO ACUTE CHANGE TODAY. VSS, A/O. GENERALIZED WEAKNESS AND SOB WITH EXERTION ALTHOUGH PT ABLE TO WORK WITH THERAPY AND MOVE ABOUT ROOM WELL. CONTINUES ON 2L NC, SP02 WNL. GI PANEL COLLECTED TONIGHT, PT HAVING LOOSE STOOLS, SEE RESULTS. PT HAS DENIED N/V, PAIN. WILL CTM AND REPORT TO DAVIS CANALES.
[2021-08-03 19:32] LABS: Adenovirus F 40/41 Not Detected (NOT DETECT); Astrovirus Not Detected (NOT DETECT); Campylobacter Sp Not Detected (NOT DETECT); Cryptosporidium Not Detected (NOT DETECT); Cyclospora Cayetanensis Not Detected (NOT DETECT); E. Coli O157 Not Detected (NOT DETECT); Entamoeba Histolytica Not Detected (NOT DETECT); Enteroaggregative E. coli-EAEC Not Detected (NOT DETECT); Enteropathogenic E. coli-EPEC Not Detected (NOT DETECT); Enterotoxigenic E. coli-ETEC Not Detected (NOT DETECT); Giardia Lamblia Not Detected (NOT DETECT); Norovirus GI/GII Not Detected (NOT DETECT); Plesiomonas Shigelloides Not Detected (NOT DETECT); Rotavirus A Not Detected (NOT DETECT); Salmonella Sp Not Detected (NOT DETECT); Sapovirus Not Detected (NOT DETECT); Shiga Toxin-prod E. coli-STEC Not Detected (NOT DETECT); Shigella/Enteroin E. coli-EIEC Not Detected (NOT DETECT); Vibrio Cholerae Not Detected (NOT DETECT); Vibrio Sp Not Detected (NOT DETECT); Yersinia Enterocolitica Not Detected (NOT DETECT)
--- NOTE | 2021-08-03 22:20 | NUR ---
DR SUE GODINEZ CALLED DUE TO INCREASED RESPIRATORTY EFFORT. RADIOLOGY CURRENTLY IN ROOM OBTAINING CHEST XRAY.
[2021-08-04 00:24] LABS: BASOPHILS ABSOLUTE AUTO 0.09 K/mm3 (0.00-0.23); BASOPHILS PERCENT AUTO 1 % (0-2); EOSINOPHILS ABSOLUTE AUTO 0.62 K/mm3 (0.00-0.68); EOSINOPHILS PERCENT AUTO 7 % (0-6); Hematocrit 33.4 % (33.0-51.0); Hemoglobin 10.8 g/dL (11.5-16.0); IMMATURE GRAN ABSOLUTE AUTO 0.35 K/mm3 (0.00-0.10); IMMATURE GRAN PERCENT AUTO 4 % (0-1); LYMPHOCYTES ABSOLUTE AUTO 1.46 K/mm3 (0.84-5.20); LYMPHOCYTES PERCENT AUTO 17 % (21-46); MONOCYTES ABSOLUTE AUTO 1.34 K/mm3 (0.16-1.47); MONOCYTES PERCENT AUTO 16 % (4-13); Mean Corpuscular HGB Conc 32.3 g/dL (31.5-36.5); Mean Corpuscular Volume 90 fL (80-100); Mean Platelet Volume 10.7 fL (9.1-12.4); NEUTROPHILS ABSOLUTE AUTO 4.76 K/mm3 (1.96-9.15); NEUTROPHILS PERCENT AUTO 55 % (41-73); NRBC ABSOLUTE 0.02 K/mm3 (0.00-0.02); NRBC Auto 0.2 /100 WBC (0.0-0.2); Platelet Count 209 K/mm3 (150-400); RDW Coefficient Variation 13.4 % (11.7-14.2); RDW Standard Deviation 44.4 fL (35.1-46.3); Red Blood Cell Count 3.72 M/mm3 (3.80-5.20); White Blood Cell Count 8.62 K/mm3 (4.00-11.30)
[2021-08-04 00:36] LABS: Albumin, Blood 2.2 g/dL (3.4-5.0); Anion Gap 8 mmol/L (6-16); Blood Urea Nitrogen 12 mg/dL (8-24); Bun/Creatinine Ratio 19.8 (12.0-20.0); CO2, Blood 27 mmol/L (21-32); Calcium, Blood 8.3 mg/dL (8.5-10.1); Chloride, Blood 109 mmol/L (98-108); Creatinine, Blood 0.61 mg/dL (0.40-1.00); Glomerular Filtration Rate >60 (60-); Glucose, Blood 96 mg/dL (70-99); Phosphorus, Blood 2.2 mg/dL (2.5-4.9); Potassium, Blood 3.4 mmol/L (3.5-5.5); Sodium, Blood 144 mmol/L (136-145)
--- NOTE | 2021-08-04 04:17 | NUR ---
SHIFT SUMMARY PT A&O X4 AND IN PLEASENT MOOD T/O SHIFT. PT APPEARED TO HAVE INCREASED RESPIRATORY EFFORT DURING SHIFT ASSESSMENT, RT AND DR. GODINEZ CONSULTED. PT RECEIVED IV LASIX @ APPROX 0000, VOIDING WELL T/O SHIFT. RESPIRATORY EFFORT DOES APPEAR TO BE IMPROVING. VSS. CALL LIGHT W/IN REACH. TOLERATING P/O INTAKE WELL, DENIES N/V.
[2021-08-04 16:34] LABS: Anion Gap 8 mmol/L (6-16); Blood Urea Nitrogen 9 mg/dL (8-24); Bun/Creatinine Ratio 14.4 (12.0-20.0); CO2, Blood 29 mmol/L (21-32); Calcium, Blood 9.2 mg/dL (8.5-10.1); Chloride, Blood 104 mmol/L (98-108); Creatinine, Blood 0.63 mg/dL (0.40-1.00); Glomerular Filtration Rate >60 (60-); Glucose, Blood 85 mg/dL (70-99); Magnesium, Blood 1.9 mg/dL (1.6-2.4); Potassium, Blood 3.1 mmol/L (3.5-5.5); Sodium, Blood 141 mmol/L (136-145)
--- NOTE | 2021-08-04 18:18 | NUR ---
SUMMARY: PT CONTINUES TO HAVE GENERALIZED WEAKNESS AND SOB WITH EXERTION. FINE CRACKLES ASCULATED AT LUNG BASES, PT RECEIVED IV LASIX TODAY AND HAS BE VOIDING FREQUENTLY. PT REPORTS THAT EFFORT OF BREATHING IS BETTER TONIGHT WHEN COMPARED TO THIS MORNING, ALTHOUGH RR CONTINUES TO BE 25-28 AND AUDIBLE WHEESE HEARD. NO RETRACTIONS OR ACCESSORY MUSCLE USE NOTED. SP02 ABOVE 90% ON RA WHILE AWAKE, 87-89% ON RA WHILE SLEEPING. PT PLACED ON 2L NC FOR SLEEP. CONTINUIOUS OXIMETRY IN PLACE.
--- NOTE | 2021-08-04 18:52 | NUR ---
SHIFT SUMMARY CONTINUED: SPOKE WITH DR. HSIEH AT 1830 CONCERNING PT RR AND EFFORT IN PREVIOUS NOTE. NO NEW ORDERS AT THIS TIME. PT TELE AND VSS TODAY. PT CONTINUES TO HAVE LIQUID STOOLS. PT IS A/O AND USING CALL LIGHT. REPORT PASSED TO NOC HANNAH CANALES.
--- NOTE | 2021-08-05 04:11 | NUR ---
SHIFT SUMMARY PT A&O X4 AND IN PLEASENT MOOD T/O SHIFT. PT HAS BEEN UP MOST OF NIGHT COMPLAINING OF BED BEING UNCOMFORTABLE AND USING THE BEDSIDE COMODE. PT CURRENTLY ON 2L NC WHILE SLEEPING, BILATERAL CRACKLES IN BASES PRESENT. VSS. CALL LIGHT W/IN REACH.
[2021-08-05 04:45] LABS: Magnesium, Blood 1.6 mg/dL (1.6-2.4); Potassium, Blood 3.4 mmol/L (3.5-5.5)
--- NOTE | 2021-08-05 14:43 | NUR ---
PT. DISCHARGED TO HOME AT 1440. DC INSTRUCTIONS EXPLAINED AND PT. VERBALIZE UNDERSTANDING. [facility] HAS ALREADY CONTACTED HER TO FOLLOW UP AFTER THANKSGIVING. COPY OF DC INSTRUCTIONS SENT WITH PT. AND BELONGINS SENT WITH PT. W/C TO EXIT, FRIEND HERE TO TAKE PT. HOME. VERBALIZE RELIEF OF TAILBONE DISCOMFORT WITH TYLENOL GIVEN EARLIER. PERSONAL MEDICATIONS ALSO SENT HOME WITH PT. (IE;,INHALER, EYE GTTS.)
== END 2021-08-05 14:40 | disposition home or self-care (01) | DRG 917 ==
LOC: ER 08:37 → SURS 11:56 → ICUW 11:56 → SURS 08-02 21:10
PROVIDERS: Emergency Medicine; Family Medicine; Internal Medicine Critical Care Medicine; Nurse Practitioner Acute Care; Pharmacist; Student in an Organized Health Care Education/Training Program; ADMIT Internal Medicine
PROC: 5A09457 Assistance with Respiratory Ventilation, 24-96 Consecutive Hours, Continuous Positive Airway Pressure (ICD-10-PCS; principal; 2021-07-30)
PROC: 3E02340 Introduction of Influenza Vaccine into Muscle, Percutaneous Approach (ICD-10-PCS; 2021-07-30)
PROC: 3E033XZ Introduction of Vasopressor into Peripheral Vein, Percutaneous Approach (ICD-10-PCS; 2021-07-30)
PROC: 06HY33Z Insertion of Infusion Device into Lower Vein, Percutaneous Approach (ICD-10-PCS; 2021-07-30)
DX: T40.2X1A Poisoning by other opioids, accidental (unintentional), initial encounter (principal); R65.21 Severe sepsis with septic shock; A41.51 Sepsis due to Escherichia coli [E. coli]; G92.8 Other toxic encephalopathy; J69.0 Pneumonitis due to inhalation of food and vomit; I21.4 Non-ST elevation (NSTEMI) myocardial infarction; J18.9 Pneumonia, unspecified organism; J96.02 Acute respiratory failure with hypercapnia; N17.9 Acute kidney failure, unspecified; M62.82 Rhabdomyolysis; N39.0 Urinary tract infection, site not specified; E87.2 Acidosis; Z68.41 Body mass index [BMI] 40.0-44.9, adult; Z23 Encounter for immunization; Z20.822 Contact with and (suspected) exposure to COVID-19; K21.9 Gastro-esophageal reflux disease without esophagitis; I25.10 Atherosclerotic heart disease of native coronary artery without angina pectoris; J45.909 Unspecified asthma, uncomplicated; G89.4 Chronic pain syndrome; I10 Essential (primary) hypertension; E87.6 Hypokalemia; E83.42 Hypomagnesemia; E66.01 Morbid (severe) obesity due to excess calories; Z95.1 Presence of aortocoronary bypass graft; E78.5 Hyperlipidemia, unspecified; F32.A Depression, unspecified; Z98.890 Other specified postprocedural states; Z98.51 Tubal ligation status; R74.01 Elevation of levels of liver transaminase levels
CPT/HCPCS: 0097U; 0241U; 36415; 36556; 36600; 51702; 70450; 71045; 74176; 80047; 80048; 80053; 80069; 80202; 81001; 82270; 82330; 82550; 82553; 82803; 82947; 83605; 83735; 83880; 84100; 84132; 84145; 84484; 85014; 85025; 87040; 87077; 87086; 87186; 87449; 92526; 92610; 93005; 93010; 94640; 94660; 94762; 96365-59; 96366-59; 96368; 96375-59; 97110; 97116; 97161; 97166; 97530; 97535; 99285-25; A9270; C1751; C8929; C9113; J0456; J0696; J1644; J1940; J2310; J2405; J2543; J2765; J3370; J3475; J3480; J7030; J7050; J7060; J7120; P9046; Q9957

== ENCOUNTER → 2021-12-04 | Outpatient (CLI) | payer OTHER ==
[2021-12-04 13:46] LABS: BASOPHILS ABSOLUTE AUTO 0.08 K/mm3 (0.00-0.23); BASOPHILS PERCENT AUTO 1 % (0-2); EOSINOPHILS ABSOLUTE AUTO 0.55 K/mm3 (0.00-0.68); EOSINOPHILS PERCENT AUTO 8 % (0-6); Hematocrit 38.8 % (33.0-51.0); Hemoglobin 12.3 g/dL (11.5-16.0); IMMATURE GRAN ABSOLUTE AUTO 0.01 K/mm3 (0.00-0.10); IMMATURE GRAN PERCENT AUTO 0 % (0-1); LYMPHOCYTES ABSOLUTE AUTO 1.73 K/mm3 (0.84-5.20); LYMPHOCYTES PERCENT AUTO 25 % (21-46); MONOCYTES ABSOLUTE AUTO 0.54 K/mm3 (0.16-1.47); MONOCYTES PERCENT AUTO 8 % (4-13); Mean Corpuscular HGB 29.3 pg (26.0-34.0); Mean Corpuscular HGB Conc 31.7 g/dL (31.5-36.5); Mean Corpuscular Volume 92 fL (80-100); Mean Platelet Volume 9.7 fL (9.1-12.4); NEUTROPHILS ABSOLUTE AUTO 3.95 K/mm3 (1.96-9.15); NEUTROPHILS PERCENT AUTO 58 % (41-73); Platelet Count 236 K/mm3 (150-400); White Blood Cell Count 6.86 K/mm3 (4.00-11.30)
[2021-12-04 13:49] LABS: Anion Gap 5 mmol/L (6-16); Blood Urea Nitrogen 15 mg/dL (8-24); Bun/Creatinine Ratio 16.7 (12.0-20.0); CO2, Blood 30 mmol/L (21-32); Calcium, Blood 8.8 mg/dL (8.5-10.1); Chloride, Blood 106 mmol/L (98-108); Glomerular Filtration Rate >60 (60-); Glucose, Blood 94 mg/dL (70-99); Potassium, Blood 4.2 mmol/L (3.5-5.5); Sodium, Blood 141 mmol/L (136-145)
== END ==
LOC: LAB SHORT 13:40
PROVIDERS: Family Medicine
DX: R51.9 Headache, unspecified (principal); Z79.82 Long term (current) use of aspirin
CPT/HCPCS: 80048; 85025

== ENCOUNTER 2021-12-30 11:56 | Emergency (ER) | payer OTHER ==
[~2021-12-30] VITALS: Ht 167.6 cm; Wt 106.6 kg
[~2021-12-30 11:56] MED LIST changes: -OMEPRAZOLE MAGN20 MG; +OMEPRAZOLE MAGN20 MG PO
[2021-12-30 12:53] LABS: Albumin, Blood 2.9 g/dL (3.4-5.0); BASOPHILS ABSOLUTE AUTO 0.07 K/mm3 (0.00-0.23); BASOPHILS PERCENT AUTO 1 % (0-2); Bilirubin, Total 0.7 mg/dL (0.1-1.0); Calcium, Blood 8.4 mg/dL (8.5-10.1); Creatinine, Blood 1.16 mg/dL (0.40-1.00); EOSINOPHILS ABSOLUTE AUTO 0.28 K/mm3 (0.00-0.68); EOSINOPHILS PERCENT AUTO 3 % (0-6); Hematocrit 38.8 % (33.0-51.0); Hemoglobin 12.1 g/dL (11.5-16.0); IMMATURE GRAN ABSOLUTE AUTO 0.05 K/mm3 (0.00-0.10); IMMATURE GRAN PERCENT AUTO 1 % (0-1); LYMPHOCYTES ABSOLUTE AUTO 1.46 K/mm3 (0.84-5.20); LYMPHOCYTES PERCENT AUTO 18 % (21-46); MONOCYTES ABSOLUTE AUTO 0.76 K/mm3 (0.16-1.47); MONOCYTES PERCENT AUTO 9 % (4-13); Mean Corpuscular HGB 29.2 pg (26.0-34.0); Mean Corpuscular HGB Conc 31.2 g/dL (31.5-36.5); Mean Corpuscular Volume 94 fL (80-100); NEUTROPHILS ABSOLUTE AUTO 5.59 K/mm3 (1.96-9.15); NEUTROPHILS PERCENT AUTO 68 % (41-73); Potassium, Blood 4.3 mmol/L (3.5-5.5); RDW Coefficient Variation 13.7 % (11.7-14.2); RDW Standard Deviation 46.8 fL (35.1-46.3); Red Blood Cell Count 4.15 M/mm3 (3.80-5.20); Total Protein, Blood 5.9 g/dL (6.4-8.2); White Blood Cell Count 8.21 K/mm3 (4.00-11.30)
[2021-12-30] MEDS ORDERED: LATA.005SO BOTHEYES (12:58)
== END 2021-12-30 14:44 | disposition home or self-care (01) ==
LOC: ER 11:56
PROVIDERS: Emergency Medicine
DX: I95.1 Orthostatic hypotension (principal); R42 Dizziness and giddiness; T40.495A Adverse effect of other synthetic narcotics, initial encounter; Z79.899 Other long term (current) drug therapy
CPT/HCPCS: 36415; 80053; 85025; 93005; 93010; 99284-25

== ENCOUNTER 2022-12-28 09:18 | Day surgery (SDC) | payer OTHER ==
[~2022-12-28] VITALS: Ht 167.6 cm; Wt 103.5 kg
[~2022-12-28 09:18] MED LIST changes: +LATA.005SO BOTHEYES
[2022-12-28] MEDS ORDERED: NITR.4SL (09:54)
[2022-12-28] MEDS ORDERED: Oxycodone HCl20 M1 (09:54)
[2022-12-28] MEDS ORDERED: Triamcinolone A15 G4 (09:55)
[2022-12-28 10:00] VITALS: BP 145/83
--- NOTE | 2022-12-28 12:10 | NUR ---
12/28/22 1210 JOSHUA GILLIS THIS PROCEDURE CANCELLED DUE TO PATIENT DRINKING WATER PRIOR TO PROCEDURE
== END 2022-12-28 10:05 | disposition home or self-care (01) ==
LOC: ORSCSDS 09:18
DX: R13.10 Dysphagia, unspecified (principal); R19.7 Diarrhea, unspecified; Z53.9 Procedure and treatment not carried out, unspecified reason
CPT/HCPCS: J7120

== ENCOUNTER 2023-01-04 19:11 | Emergency (ER) | payer OTHER ==
[~2023-01-04] VITALS: Ht 167.6 cm; Wt 108.0 kg
[~2023-01-04 19:11] MED LIST changes: +NITR.4SL; +Triamcinolone A15 G4
[2023-01-04 19:38] LABS: BASOPHILS ABSOLUTE AUTO 0.11 K/mm3 (0.00-0.23); BASOPHILS PERCENT AUTO 1 % (0-2); EOSINOPHILS ABSOLUTE AUTO 0.78 K/mm3 (0.00-0.68); EOSINOPHILS PERCENT AUTO 10 % (0-6); Hematocrit 41.3 % (33.0-51.0); Hemoglobin 13.1 g/dL (11.5-16.0); IMMATURE GRAN ABSOLUTE AUTO 0.02 K/mm3 (0.00-0.10); IMMATURE GRAN PERCENT AUTO 0 % (0-1); LYMPHOCYTES ABSOLUTE AUTO 2.11 K/mm3 (0.84-5.20); LYMPHOCYTES PERCENT AUTO 27 % (21-46); MONOCYTES PERCENT AUTO 9 % (4-13); Mean Corpuscular HGB 29.8 pg (26.0-34.0); Mean Corpuscular HGB Conc 31.7 g/dL (31.5-36.5); Mean Corpuscular Volume 94 fL (80-100); Mean Platelet Volume 9.5 fL (9.1-12.4); NEUTROPHILS ABSOLUTE AUTO 4.11 K/mm3 (1.96-9.15); NEUTROPHILS PERCENT AUTO 53 % (41-73); Platelet Count 269 K/mm3 (150-400); RDW Coefficient Variation 12.7 % (11.7-14.2); RDW Standard Deviation 43.8 fL (35.1-46.3); White Blood Cell Count 7.83 K/mm3 (4.00-11.30)
[2023-01-04 19:59] LABS: Albumin, Blood 3.1 g/dL (3.4-5.0); Albumin/Globulin Ratio 1.1 (0.8-1.8); Bilirubin, Total 0.6 mg/dL (0.1-1.0); Bun/Creatinine Ratio 23.1 (12.0-20.0); Calcium, Blood 9.3 mg/dL (8.5-10.1); Creatinine, Blood 0.78 mg/dL (0.40-1.00); Globulin, Blood 2.9 g/dL (2.2-4.0); Potassium, Blood 4.3 mmol/L (3.5-5.5)
[2023-01-04] MEDS ORDERED: OXYC15ER PO (20:47)
[2023-01-04] MEDS ORDERED: Pepcid40 MG PO (21:05)
[2023-01-04 21:20] VITALS: BP 119/67
== END 2023-01-04 21:17 | disposition home or self-care (01) ==
LOC: ER 19:11
PROVIDERS: Emergency Medicine
DX: R07.2 Precordial pain (principal); Z79.899 Other long term (current) drug therapy; Z79.82 Long term (current) use of aspirin
CPT/HCPCS: 80053; 84484; 85025; 93005; 93010; 99283-25; A9270

== ENCOUNTER 2023-04-07 02:19 | Inpatient (IN) | payer OTHER ==
[~2023-04-07] VITALS: Ht 167.6 cm; Wt 105.2 kg
[~2023-04-07 02:19] MED LIST changes: +BUPRENORPHINE HC2 MG SL; +Flovent 220 Ora12 GM INH; +OXYC15ER PO; +PREG75 PO; +Pepcid40 MG PO; +TERB250 PO; +THERA-D2000 UNIT PO; +Triamcinolone A15 G3 TOP
[2023-04-07 03:24] LABS: Hematocrit 41.5 % (33.0-51.0); Hemoglobin 12.9 g/dL (11.5-16.0); Mean Corpuscular HGB 29.9 pg (26.0-34.0); Mean Corpuscular HGB Conc 31.1 g/dL (31.5-36.5); Mean Corpuscular Volume 96 fL (80-100); Mean Platelet Volume 9.7 fL (9.1-12.4); Platelet Count 251 K/mm3 (150-400); RDW Coefficient Variation 13.7 % (11.7-14.2); RDW Standard Deviation 49.1 fL (35.1-46.3); Red Blood Cell Count 4.31 M/mm3 (3.80-5.20)
[2023-04-07 03:42] LABS: Alanine Aminotransfer (ALT/SGP 43 U/L (12-78); Albumin, Blood 2.6 g/dL (3.4-5.0); Albumin/Globulin Ratio 0.9 (0.8-1.8); Alk Phos 66 U/L (50-136); Anion Gap 7 mmol/L (6-16); Aspartate Aminotrans (AST/SGOT 123 U/L (12-37); Bilirubin, Total 0.6 mg/dL (0.1-1.0); Blood Urea Nitrogen 41 mg/dL (8-24); Bun/Creatinine Ratio 16.7 (12.0-20.0); CO2, Blood 26 mmol/L (21-32); Calcium, Blood 8.1 mg/dL (8.5-10.1); Chloride, Blood 112 mmol/L (98-108); Creatinine, Blood 2.45 mg/dL (0.40-1.00); Ethanol (Alcohol), Blood, Med <3 mg/dL; Glomerular Filtration Rate 20 (60-); Glucose, Blood 109 mg/dL (70-99); Magnesium, Blood 1.9 mg/dL (1.6-2.4); Potassium, Blood 4.6 mmol/L (3.5-5.5); Sodium, Blood 145 mmol/L (136-145); Total Protein, Blood 5.6 g/dL (6.4-8.2)
[2023-04-07 03:53] LABS: Base Excess Venous -2.5 mmol/L; Bicarbonate Venous 21.5 mmol/L (24.0-30.0); PCO2 Venous 55.5 mmHg (38-42)
[2023-04-07 03:54] LABS: BAND PERCENT MAN 10 % (0-8); BASOPHILS ABSOLUTE MAN 0.15 K/mm3 (0.00-0.23); BASOPHILS PERCENT MAN 1 % (0-2); EOSINOPHILS PERCENT MAN 0 % (0-6); LYMPHOCYTES PERCENT MAN 4 % (21-46); METAMYELOCYTE PERCENT MAN 2 % (0-0); MONOCYTES ABSOLUTE MAN 1.36 K/mm3 (0.16-1.47); MONOCYTES PERCENT MAN 9 % (4-13); MYELOCYTE ABSOLUTE MAN 0.15 K/mm3 (0.00-0.00); MYELOCYTE PERCENT MAN 1 % (0-0); NEUTROPHILS ABSOLUTE MAN 12.61 K/mm3 (1.96-9.15); SEG NEUTROPHILS PERCENT MAN 73 % (41-73); TOTAL CELLS COUNTED 100
[2023-04-07 03:54] LABS: pH Blood Venous 7.26 (7.34-7.37)
[2023-04-07 04:05] LABS: Source, Urine Clean Catch
[2023-04-07 04:44] LABS: Appearance, Urine Cloudy (Clear); Blood, Urine 1+ (Neg); Color, Urine Amber (P-Yellow); Glucose Qualitative, Urine Neg (Neg); Ketones, Urine 1+ (Neg); Leukocyte Esterase, Urine 2+ (Neg); Nitrite, Urine Neg (Neg); Protein, Urine 2+ (Neg); Specific Gravity, Urine 1.025 (1.003-1.022); Urobilinogen, Urine 1+ (Normal)
[2023-04-07 05:00] LABS: Bilirubin, Urine 2+ (Neg)
[2023-04-07 05:06] LABS: Bacteria Many /hpf; Squamous Epithelial Cells Many /hpf (Few)
[2023-04-07 05:08] LABS: Amorphous Light (0-Heavy); Calcium Oxalate Crystals Mod /hpf
[2023-04-07 05:24] LABS: U Amphetamine Screen Not Detected; U Barbituate Screen Not Detected; U Benzodiazapine Screen Not Detected; U Buprenorphine Screen DETECTED; U Cannabinoids Screen Not Detected; U Cocaine Screen Not Detected; U Methadone Screen Not Detected; U Methamphetamine Screen Not Detected; U Opiates Screen Not Detected; U Oxycodone Screen Not Detected; U Phencyclidine Screen Not Detected; U Propoxyphene Screen Not Detected
[2023-04-07 08:08] VITALS: BP 79/46
[2023-04-07 08:24] VITALS: BP 94/56
--- NOTE | 2023-04-07 08:46 | NUR ---
PT ARRIVED TO PCU AT 0800 VIA GURNEY AND ON 2L NC. PT SLID TO PCU BED VIA SLIDE SHEET AND 4 STAFF. PT A/OX4 AT TIME OF ARRIVAL BUT PT IS REPORTING VISION DIFFICULTIES. PT HAS TREMORS OF UPPER EXTREMITIES THAT REQUIRED A 2 RN VEBAL CONSENT FOR BLOOD CONSENT AND RELEASE OF INFORMATION, SECOND SIGNATURE BY TIM RN. NO REPORT OF CHEST PAIN/PRESSURE AT TIME OF ARRIVAL. PT ABLE TO RECALL HAVING A FALL AT HOME. PHONE PROVIDED TO PT AND SON'S NUMBER DIALED FOR PT TO UPDATE SON. CONSENT FORMS IN CHART.
[2023-04-07 12:00] VITALS: BP 119/65
[2023-04-07 12:58] LABS: Base Excess Venous -4.4 mmol/L; Bicarbonate Venous 21.1 mmol/L (24.0-30.0); PCO2 Venous 37.4 mmHg (38-42); pH Blood Venous 7.36 (7.34-7.37)
[2023-04-07 16:11] VITALS: BP 106/59
--- NOTE | 2023-04-07 19:22 | NUR ---
0900 FIRE IGNITION RISK ASSESSMENT PT ASSESSED FOR SMOKING AND FIRE IGNITION RISK DEVICES, NONE REPORTED. PT REMINDED THAT [facility] IS A SMOKE FREE FACILITY AND THAT VISITOR NEED TO LEAVE ANY FIRE RISK DEVICES IN THEIR VEHICLE. PT AGREED.
[2023-04-07 19:37] VITALS: BP 98/55
--- NOTE | 2023-04-07 19:38 | NUR ---
SHIFT SUMMARY PT ALERT WHEN SHE CAME TO PCU THIS AM AND ABLE TO ANSWER ORIENTATION QUESTIONS. PT WAS REPORTING HALLUCINATION OF "A LADY" IN HER ROOM, BUT PT STATED THAT SHE KNEW IT WAS A HALLUCINATION. PT MENTATION DECLINED GRADUALLY THROUGHOUT SHIFT, HAVING MORE HALLACINATIONS AND DELUSIONS, SEE NEURO CHECKS. TOWARDS END OF SHIFT, PT BEGAN TO REFUSE CARE FROM STAFF AND DID NOT WANT TO COOPERATE WITH STAFF AFTER BEING BLADDERED SCANNED. BLADDER SCAN SHOWED 800ML POST VOID. PT INFORMED THAT SHE NEEDED TO BE CATHED AND PT STATED THAT SHE HAS HAD A CATHETER PLACED BEFORE. DURING THE ATTEMPT TO PLACE STRAIGHT CATH, PT BECAME UNCOOPERATIVE AND BEGAN YELLING TO STOP. [place] [facility] [place] [facility] WALKER AND 3 STAFF. PT HAD DIFFICULTY GENERATING A STREAM. PT HALLICINATING AND TALKING TO HALLUCINATIONS. SHIFT CHANGE REPORT WAS GIVEN TO ONCOMING RN, PT WAS YELLING AT THIS RN AND ONCOMING RN TO "SHUT THE HELL UP." PT INFORMED THAT REPORT NEEDED TO BE GIVEN. IV FLUID RUNNING PER ORDER. PT ON SL NC WITH SATS IN THE 90'S. OTHER VSS. NO REPORT OF CHEST APIN/PRESSURE. NO REPORT OF SOB/DYSPNEA.
[2023-04-07 23:49] VITALS: BP 106/61
[2023-04-08 03:42] VITALS: BP 127/79
--- NOTE | 2023-04-08 05:29 | NUR ---
SHIFT SUMMARY THIS RN ASSUMED CARE OF PATIENT AT 1900. NO CHANGES TO NEURO. PT CONTINUES TO HAVE HALLUCINATIONS AND IS PARANOID OF STAFF/CARE. PT CALLING APPROPRIATELY FOR NEEDS, HOWEVER, PT IS REFUSING ANY OTHER STAFF BESIDES THIS RN TO HELP HER DURING THIS NOC SHIFT AND IS PARANOID ABOUT OTHER STAFF'S INTENTIONS. OTHERISE PT HAS BEEN PLEASANT WITH THIS RN AND HAS SLEPT MOST OF THIS SHIFT. SR ON MONITOR. AFEBRILE. SPO2 >92% ON 2L VIA NC. BP STABLE. NS INFUSING PER EMAR. PT ASSISTED WITH Q2 HR REPOSITIONING. IGNITION RISK/SAFETY ASSESSMENT AND EDUCATION COMPLETE. PT UP TO BSC WITH 1-2P ASSIST WITH FWW AND GAITBEL[place]. BED IN LOWEST POSITION AND CALL LIGHT WITHIN REACH. THIS RN WILL CONTINUE TO MONITOR UNTIL SHIFT CHANGE AT 0700.
[2023-04-08 05:43] LABS: Hemoglobin 10.9 g/dL (11.5-16.0); Mean Corpuscular HGB 29.9 pg (26.0-34.0); Mean Corpuscular HGB Conc 31.1 g/dL (31.5-36.5); Mean Corpuscular Volume 96 fL (80-100); Mean Platelet Volume 10.5 fL (9.1-12.4); Platelet Count 243 K/mm3 (150-400); RDW Coefficient Variation 13.7 % (11.7-14.2); Red Blood Cell Count 3.64 M/mm3 (3.80-5.20); White Blood Cell Count 14.87 K/mm3 (4.00-11.30)
[2023-04-08 06:07] LABS: Bun/Creatinine Ratio 35.5 (12.0-20.0); Calcium, Blood 8.1 mg/dL (8.5-10.1); Creatinine, Blood 1.07 mg/dL (0.40-1.00)
[2023-04-08 06:44] LABS: BAND PERCENT MAN 8 % (0-8); BASOPHILS PERCENT MAN 0 % (0-2); EOSINOPHILS ABSOLUTE MAN 0.44 K/mm3 (0.00-0.68); EOSINOPHILS PERCENT MAN 3 % (0-6); LYMPHOCYTES ABSOLUTE MAN 1.33 K/mm3 (0.84-5.20); LYMPHOCYTES PERCENT MAN 9 % (21-46); MONOCYTES ABSOLUTE MAN 0.29 K/mm3 (0.16-1.47); MONOCYTES PERCENT MAN 2 % (4-13); NEUTROPHILS ABSOLUTE MAN 12.78 K/mm3 (1.96-9.15); SEG NEUTROPHILS PERCENT MAN 78 % (41-73); TOTAL CELLS COUNTED 100
[2023-04-08 08:14] VITALS: BP 132/65
--- NOTE | 2023-04-08 11:36 | NUR ---
CARE ASSUMPTION This Rn assumed care at 0700. vital signs stable. patient made medical status no tele. patient is alert and oriented x4. perrla. patient is able to make needs known and uses the call light appropriately. patient reports no chest pain/pressure or shortness of breath. patient reports back pain but is relieved with repositioning. see shift assessment further detials. son updated on patient condition and plan of care. son is at bedside, kira. plan of care is up to date. morning adls done by patient with minimal assitance from staff.
--- NOTE | 2023-04-08 11:49 | NUR ---
REPORT TO MEDICAL FLOOR This RN gave report to Harry Canchola, on medical floor. patient belongings gathered and taken up with her to new room, 357. patient son at beside. patient has phone and glasses with her. patient is taking her purse home. patient left in no distress with all belongings.
[2023-04-08 16:43] VITALS: BP 140/69
--- NOTE | 2023-04-08 19:11 | NUR ---
PT MOSTLY PLEASANT TODAY. MED FOR PAIN ONCE TODAY. PT STATES FEELS LIKE IS IMPROVING. PT GET TO BSC TWICE AT LEAST TODAY WITH 1 ASSIST. STATES DOES HAVE ASTHSMA AND WHEN WAS A LITTLE WHEEZY, REQUESTED BREATHING TX. IMPROVEMENT NOTICED. VSS THIS SID. A LITTLE FORGETFUL THIS SID, STATED WANTED TO USE TIOLET, BUT NO ONE CAME, HOWEVER, I HAVE BEEN OUTSIDE ROOM AND WHEN ASKED FOR BATHROOM, AIDE CAME TO HELP. SHE STATED NO ONE CAME. NO OTHER NEW CONCERNS NOTED. BED IN LOW POSITION, CALL LITE IN REACH, CALLS APPROP
[2023-04-08 21:14] VITALS: BP 126/67
[2023-04-09 04:58] VITALS: BP 129/67
[2023-04-09 05:04] LABS: BASOPHILS ABSOLUTE AUTO 0.07 K/mm3 (0.00-0.23); BASOPHILS PERCENT AUTO 1 % (0-2); EOSINOPHILS ABSOLUTE AUTO 0.64 K/mm3 (0.00-0.68); EOSINOPHILS PERCENT AUTO 6 % (0-6); Hematocrit 32.8 % (33.0-51.0); Hemoglobin 10.5 g/dL (11.5-16.0); IMMATURE GRAN ABSOLUTE AUTO 0.04 K/mm3 (0.00-0.10); IMMATURE GRAN PERCENT AUTO 0 % (0-1); LYMPHOCYTES ABSOLUTE AUTO 1.25 K/mm3 (0.84-5.20); LYMPHOCYTES PERCENT AUTO 12 % (21-46); MONOCYTES ABSOLUTE AUTO 0.56 K/mm3 (0.16-1.47); MONOCYTES PERCENT AUTO 5 % (4-13); Mean Corpuscular HGB 29.8 pg (26.0-34.0); Mean Corpuscular Volume 93 fL (80-100); Mean Platelet Volume 10.2 fL (9.1-12.4); NEUTROPHILS ABSOLUTE AUTO 7.85 K/mm3 (1.96-9.15); NEUTROPHILS PERCENT AUTO 75 % (41-73); Platelet Count 228 K/mm3 (150-400); RDW Coefficient Variation 13.5 % (11.7-14.2); Red Blood Cell Count 3.52 M/mm3 (3.80-5.20); White Blood Cell Count 10.41 K/mm3 (4.00-11.30)
--- NOTE | 2023-04-09 05:10 | NUR ---
SHIFT SUMMARY PT IS ALERT AND ORIENTED X4. 2 PERSON ASSIST TO BEDSIDE COMMODE WITH GAIT BELT AND FWW. PT HAS BEEN CALM AND COOPERATIVE. SLEPT MOST OF THE NIGHT. NO ACUTE CHANGES THIS SHIFT. PT ON R/A. DURING HOURLY ROUNDING, EDUCATION PROVIDED ON RISKS OF INJURY WHILE USING AN IGNITION SOURCE AROUND OXYGEN. THE PT VERBALIZES UNDERSTANDING AND DENY HAVING ANY IGNITION SOURCES
[2023-04-09 05:36] LABS: Bun/Creatinine Ratio 29.6 (12.0-20.0); Calcium, Blood 8.2 mg/dL (8.5-10.1); Creatinine, Blood 0.68 mg/dL (0.40-1.00); Potassium, Blood 3.8 mmol/L (3.5-5.5)
[2023-04-09 07:19] VITALS: BP 149/71
[2023-04-09 14:45] VITALS: BP 124/63
--- NOTE | 2023-04-09 18:41 | NUR ---
DAY SHIFT SUMMARY: A&Ox4. PLEASANT AND COOPERATIVE WITH CARE. CALLS APPROPRIATELY AND IS ABLE TO COMMUNICATE NEEDS EFFECTIVELY. C/O BACK PAIN; PROVIDED WITH HEATING PAD, REPOISITIONING/PILLOWS AND OXY AND APAP TWICE. NS DC'D AND SALINE LOCKED. IMPROVED AMBULATION TODAY AND IS NOW USING WALKING AND 1PA TO AMBULATE TO BATHROOM. SAT IN RECLINER FOR A BIT TODAY BUT WENT BACK TO BED TO LAY DOWN TO ALLEVIATE BACK PAIN. SON WAS IN TO VISIT TODAY. IVY PATRICIO Rx OBTAINED FOR COUGH AND RT PROVIDED WITH VENOTLIN PRN. CONTINUES WITH O2 @ 1LPM VIA NC; DECLINES PULSE OX. VSS. BM TODAY. ANTICIPATE WORKING WITH PT/OT. WOULD BENEFIT FROM SYSTEMS PROGRAMMER ANALYST CONSULT SHE IS THE PRIMARY CAREGIVER FOR HER DISABLED . REPORT TO ONCOMING RN.
[2023-04-09 19:39] VITALS: BP 135/71
[2023-04-10 04:29] VITALS: BP 136/69
[2023-04-10 07:17] VITALS: BP 127/70
--- NOTE | 2023-04-10 07:17 | NUR ---
SHIFT SUMMERY, PT RESTING IN BED, PT WAS REPOSITONED AND MULTIPLE PILLOWS PLACED TO HELP PT GET MORE COMFORATBLE. PT SEEMED TO BE RESTSING WELL DURING MOST OF THE NIGHT. PT MEDICATED FOR PAIN X 2 THIS SHIFT. CALL LIGHT IN [facility] FIRE SAFETY REVIEWED.
[2023-04-10 16:18] VITALS: BP 135/58
--- NOTE | 2023-04-10 16:45 | NUR ---
SHIFT SUMMARY: NO ACUTE EVENTS. PHYSICAL THERAPY EVALUATED PATIENT, RECOMMENDED HOME HEALTH. PATIENT ABLE TO AMBULATE WITH FWW ABOUT 100 FEET TODAY, TOLERATED FAIR. C/O BACK PAIN AND NEW ONSET L HIP PAIN (POSSIBLY FROM FALL INDIRECT SALES REPRESENTATIVE); MEDICATED PER EMAR WITH SOME RELIEF. CARDIAC ECHO COMPLETE. O2 SAT 95% ON ROOM AIR, O2 D/C'D. GETTING UP TO BR WITH FWW AND SBA. TOLERATING DIET. HAD VISIT FROM HER SON TODAY.
[2023-04-10 19:57] VITALS: BP 127/65
[2023-04-11 04:02] VITALS: BP 144/73
--- NOTE | 2023-04-11 05:40 | NUR ---
SHIFT SUMMARY 77 YR F ADMITTED ON 04/07/23 FOR SEPSIS. FULL CODE. NO ACUTE CHANGES THIS SHIFT. PT C/O BACK PAIN AND IS BEING MEDICATED PER EMAR. SHE COVERS HER BED W/ PILLOWS TO GET COMFORTABLE, AND SHE SLEPT FOR MOST OF THIS SHIFT. SHE IS PLEASANT AND COOPERATIVE WITH CARE. PLAN IS FOR PT TO DISCHARGE HOME TODAY. PT HAS BEEN EDUCATED ON IGNITION HAZARDS AND FIRE SAFETY WHILE OXYGEN IS IN USE.
[2023-04-11 07:23] VITALS: BP 158/81
--- NOTE | 2023-04-11 08:00 | NUR ---
PT A/O X3, PLEASANT STATES FEELS PRETTY MUCH BACK TO BASELINE. EXPECTING D/C TODAY. DENIES PAIN AT THIS TIME. H/R REG, NO MURMUR NOTED. NO TELE, NO EDEMA NOTED. LUNGS CLEAR, RESP EASY, UNLABORED. ON R.A. BT X4 LAST BM YEST PER PT. VOIDS SBA TO BATHROOM. BED IN LOW POSITION, CALL LITE IN REACH, CALLS APPROP
[2023-04-11] MEDS ORDERED: LATA.005SO BOTHEYES (10:27)
[2023-04-11] MEDS ORDERED: OXYC5 PO (10:28)
[2023-04-11] MEDS ORDERED: Acetaminophen650 M1 PO (10:29)
--- NOTE | 2023-04-11 13:31 | NUR ---
PT DISCHARGE REVIEWED WITH PT. SHE VERBALIZED UNDERSTANDING MEDS AND INST. IV PULLED BY AIDE. NO TELE. PT RECEIVED RX FOR PAIN MEDS. PT WHEELED TO DOOR BY AIDE AT [id number]
== END 2023-04-11 13:30 | disposition home health service (06) | DRG 92 ==
LOC: ER 02:19 → MEDS 06:11 → PCU 06:11 → MEDS 04-08 12:28
PROVIDERS: Internal Medicine; Student in an Organized Health Care Education/Training Program; ADMIT Internal Medicine
DX: G92.8 Other toxic encephalopathy (principal); E87.21 Acute metabolic acidosis; N17.9 Acute kidney failure, unspecified; N39.0 Urinary tract infection, site not specified; E87.4 Mixed disorder of acid-base balance; I24.8 Other forms of acute ischemic heart disease; T40.2X5A Adverse effect of other opioids, initial encounter; T40.495A Adverse effect of other synthetic narcotics, initial encounter; E86.0 Dehydration; Z66 Do not resuscitate; Z51.5 Encounter for palliative care; E66.01 Morbid (severe) obesity due to excess calories; D63.1 Anemia in chronic kidney disease; M54.9 Dorsalgia, unspecified; G89.29 Other chronic pain; I95.9 Hypotension, unspecified; M51.36 Other intervertebral disc degeneration, lumbar region; I27.20 Pulmonary hypertension, unspecified; R54 Age-related physical debility; I12.9 Hypertensive chronic kidney disease with stage 1 through stage 4 chronic kidney disease, or unspecified chronic kidney disease; N18.9 Chronic kidney disease, unspecified; R79.89 Other specified abnormal findings of blood chemistry; Z79.82 Long term (current) use of aspirin; Z98.890 Other specified postprocedural states; Z90.89 Acquired absence of other organs; Z98.51 Tubal ligation status; Z95.1 Presence of aortocoronary bypass graft; Z79.51 Long term (current) use of inhaled steroids; Z79.891 Long term (current) use of opiate analgesic; Z79.899 Other long term (current) drug therapy; Z68.37 Body mass index [BMI] 37.0-37.9, adult; Z86.19 Personal history of other infectious and parasitic diseases
CPT/HCPCS: 36415; 70450; 71045; 72125; 80048; 80053; 81001; 82140; 82330; 82803; 82947; 83605; 83735; 83880; 84145; 84484; 85025; 87040; 87086; 93005; 93010; 93306; 94640; 94660; 94664; 94760; 94762; 96361; 96365; 96368; 97162; 99285-25; A9270; G0480; J0456; J0696; J1644; J7030; J7050

== ENCOUNTER 2023-08-08 06:25 | Day surgery (SDC) | payer OTHER ==
[~2023-08-08] VITALS: Ht 167.6 cm; Wt 102.1 kg
[~2023-08-08 06:25] MED LIST changes: +Acetaminophen650 M1 PO; +OXYC5 PO
[2023-08-08] MEDS ORDERED: Flovent 220 Ora12 GM INH (07:45)
[2023-08-08] MEDS ORDERED: PREGABALIN50 MG PO (07:46)
[2023-08-08] MEDS ORDERED: BENAZEPRIL HCL10 MG PO (07:46)
[2023-08-08] MEDS ORDERED: MONT10T (07:46)
[2023-08-08] MEDS ORDERED: PRED20 PO (07:46)
[2023-08-08] MEDS ORDERED: PANTOPRAZOLE SO40 M2 PO (07:47)
[2023-08-08] MEDS ORDERED: MELO7.5 (08:14)
--- NOTE | 2023-08-08 12:19 | NUR ---
08/08/[address] CALLED BACK TO GIVE STEPDOWN IV PAIN MED ORDERS: DILAUDID 025 MG IV Q 10MIN PRN FOR PAIN UP TO 1MG
[2023-08-08 12:48] VITALS: BP 130/54
== END 2023-08-08 13:13 | disposition home or self-care (01) ==
LOC: ORSCSDS 06:25
PROVIDERS: Otolaryngology
PROC: 09SM4ZZ Reposition Nasal Septum, Percutaneous Endoscopic Approach (ICD-10-PCS; principal; 2023-08-08 08:15)
PROC: 09BQ4ZZ Excision of Right Maxillary Sinus, Percutaneous Endoscopic Approach (ICD-10-PCS; principal; 2023-08-08 08:15)
PROC: 09BR4ZZ Excision of Left Maxillary Sinus, Percutaneous Endoscopic Approach (ICD-10-PCS; principal; 2023-08-08 08:15)
DX: J34.2 Deviated nasal septum (principal); J34.3 Hypertrophy of nasal turbinates; J32.4 Chronic pansinusitis; J33.9 Nasal polyp, unspecified
CPT/HCPCS: 88305; 88311; A9270; C2625; J0171; J1100; J1170; J2250; J2405; J2704; J2710; J3010; J7120

== ENCOUNTER 2024-07-18 05:29 | Emergency (ER) | payer OTHER ==
[~2024-07-18] VITALS: Ht 160 cm; Wt 98.0 kg
[~2024-07-18 05:29] MED LIST changes: +BENAZEPRIL HCL10 MG PO; +MELO7.5; +MONT10T; +PANTOPRAZOLE SO40 M2 PO; +PRED20 PO; +PREGABALIN50 MG PO
[2024-07-18 05:52] LABS: BASOPHILS ABSOLUTE AUTO 0.07 K/mm3 (0.00-0.23); BASOPHILS PERCENT AUTO 1 % (0-2); EOSINOPHILS ABSOLUTE AUTO 0.08 K/mm3 (0.00-0.68); EOSINOPHILS PERCENT AUTO 1 % (0-6); Hematocrit 41.2 % (33.0-51.0); Hemoglobin 13.7 g/dL (11.5-16.0); IMMATURE GRAN ABSOLUTE AUTO 0.06 K/mm3 (0.00-0.10); IMMATURE GRAN PERCENT AUTO 1 % (0-1); LYMPHOCYTES ABSOLUTE AUTO 0.57 K/mm3 (0.84-5.20); LYMPHOCYTES PERCENT AUTO 5 % (21-46); MONOCYTES ABSOLUTE AUTO 0.72 K/mm3 (0.16-1.47); MONOCYTES PERCENT AUTO 6 % (4-13); Mean Corpuscular HGB Conc 33.3 g/dL (31.5-36.5); Mean Corpuscular Volume 90 fL (80-100); Mean Platelet Volume 9.1 fL (9.1-12.4); NEUTROPHILS ABSOLUTE AUTO 11.13 K/mm3 (1.96-9.15); NEUTROPHILS PERCENT AUTO 88 % (41-73); Platelet Count 259 K/mm3 (150-400); RDW Coefficient Variation 13.3 % (11.7-14.2); RDW Standard Deviation 43.9 fL (35.1-46.3); Red Blood Cell Count 4.57 M/mm3 (3.80-5.20); White Blood Cell Count 12.63 K/mm3 (4.00-11.30)
[2024-07-18 06:10] LABS: Albumin, Blood 3.2 g/dL (3.4-5.0); Calcium, Blood 9.4 mg/dL (8.5-10.1); Globulin, Blood 3.1 g/dL (2.2-4.0); Total Protein, Blood 6.3 g/dL (6.4-8.2)
[2024-07-18] MEDS ORDERED: Potassium Chloride 20 MEQ TabCR PO ONE (07:45)
[2024-07-18] MEDS ORDERED: ONDA4ODT MM (09:02)
[2024-07-18 10:15] VITALS: BP 111/72
== END 2024-07-18 10:42 | disposition home or self-care (01) ==
LOC: ER 05:29
PROVIDERS: Emergency Medicine
DX: R11.2 Nausea with vomiting, unspecified (principal); E87.6 Hypokalemia; Z79.82 Long term (current) use of aspirin; Z79.899 Other long term (current) drug therapy; Z79.51 Long term (current) use of inhaled steroids
CPT/HCPCS: 80053; 83690; 84484; 85025; 93005; 93010; 99284-25; A9270

== ENCOUNTER 2025-06-24 14:05 | Emergency (ER) | payer OTHER ==
[~2025-06-24] VITALS: Ht 160 cm; Wt 99.8 kg
[~2025-06-24 14:05] MED LIST changes: -ASPI81CH PO; +Aspir 8181 MG PO; -ESCI20 PO; +ESCITALOPRAM OXA5 MG PO; +FLUTICASONE FU50 MCG; -MONT10T; +ONDA4ODT MM; -PROAIR RESPICL90 MCG INH
[2025-06-24] MEDS ORDERED: NS 1,000 ML IV SCH (14:20)
[2025-06-24 14:46] LABS: BASOPHILS ABSOLUTE AUTO 0.10 K/mm3 (0.00-0.23); BASOPHILS PERCENT AUTO 1 % (0-2); EOSINOPHILS ABSOLUTE AUTO 0.01 K/mm3 (0.00-0.68); EOSINOPHILS PERCENT AUTO 0 % (0-6); Hematocrit 35.0 % (33.0-51.0); Hemoglobin 11.4 g/dL (11.5-16.0); IMMATURE GRAN ABSOLUTE AUTO 0.09 K/mm3 (0.00-0.10); IMMATURE GRAN PERCENT AUTO 1 % (0-1); LYMPHOCYTES ABSOLUTE AUTO 1.16 K/mm3 (0.84-5.20); LYMPHOCYTES PERCENT AUTO 7 % (21-46); MONOCYTES ABSOLUTE AUTO 1.63 K/mm3 (0.16-1.47); MONOCYTES PERCENT AUTO 10 % (4-13); Mean Corpuscular HGB Conc 32.6 g/dL (31.5-36.5); Mean Corpuscular Volume 90 fL (80-100); NEUTROPHILS ABSOLUTE AUTO 14.07 K/mm3 (1.96-9.15); NEUTROPHILS PERCENT AUTO 82 % (41-73); NRBC ABSOLUTE 0.00 K/mm3 (0.00-0.02); NRBC Auto 0.0 /100 WBC (0.0-0.2); Platelet Count 328 K/mm3 (150-400); RDW Coefficient Variation 13.2 % (11.7-14.2); RDW Standard Deviation 43.6 fL (35.1-46.3)
[2025-06-24 15:14] LABS: Influenza A, PCR NEGATIVE (NEGATIVE); Influenza B, PCR NEGATIVE (NEGATIVE); Resp Syncytial Virus, PCR NEGATIVE (NEGATIVE); SARS-Cov-2 (COVID-19) PCR, MMC NEGATIVE (NEGATIVE)
[2025-06-24 15:40] LABS: Anion Gap 7.0 mmol/L (3-11); Blood Urea Nitrogen 16.0 mg/dL (8-24); CO2, Blood 27.0 mmol/L (21-32); Calcium, Blood 9.0 mg/dL (8.5-10.1); Chloride, Blood 102.0 mmol/L (98-108); Creatinine, Blood 1.03 mg/dL (0.40-1.00); Glucose, Blood 119.0 mg/dL (70-99); Magnesium, Blood 1.8 mg/dL (1.6-2.4); Potassium, Blood 3.1 mmol/L (3.5-5.5); Sodium, Blood 133.0 mmol/L (136-145); Thyroid Stimulating Hormone 0.728 uIU/mL (0.360-4.800)
[2025-06-24 16:49] LABS: Source, Urine Clean Catch
[2025-06-24] MEDS ORDERED: B-12500 MC2 PO (16:50)
[2025-06-24] MEDS ORDERED: POTA10T PO (16:50)
[2025-06-24 16:57] LABS: Bilirubin, Urine Neg (Neg); Color, Urine Yellow (P-Yellow); Glucose Qualitative, Urine Neg (Neg); Ketones, Urine Neg (Neg); Leukocyte Esterase, Urine 3+ (Neg); Protein, Urine 2+ (Neg); Specific Gravity, Urine 1.010 (1.003-1.022); Urobilinogen, Urine 3+ (Normal)
[2025-06-24 17:23] LABS: White Blood Cells, Urine 25-50 /hpf (0-5)
[2025-06-24 17:30] VITALS: BP 117/68
== END 2025-06-24 17:35 | disposition home or self-care (01) ==
LOC: ER 14:05
PROVIDERS: Emergency Medicine
DX: N39.0 Urinary tract infection, site not specified (principal); E87.6 Hypokalemia; E53.8 Deficiency of other specified B group vitamins; Z87.891 Personal history of nicotine dependence
CPT/HCPCS: 71045; 80048; 81001; 82607; 83735; 84439; 84443; 85025; 87040; 87077; 87186; 87637; 93005; 93010; 99285-25; A9270; J7030

== ENCOUNTER 2025-06-29 14:11 | Inpatient (IN) | payer OTHER ==
[~2025-06-29] VITALS: Ht 160 cm; Wt 100.0 kg
[~2025-06-29 14:11] MED LIST changes: +B-12500 MC2 PO; +POTA10T PO
[2025-06-29 15:08] LABS: BASOPHILS ABSOLUTE AUTO 0.08 K/mm3 (0.00-0.23); BASOPHILS PERCENT AUTO 1 % (0-2); EOSINOPHILS ABSOLUTE AUTO 0.34 K/mm3 (0.00-0.68); EOSINOPHILS PERCENT AUTO 3 % (0-6); Hematocrit 32.1 % (33.0-51.0); Hemoglobin 10.5 g/dL (11.5-16.0); IMMATURE GRAN ABSOLUTE AUTO 0.04 K/mm3 (0.00-0.10); IMMATURE GRAN PERCENT AUTO 0 % (0-1); LYMPHOCYTES ABSOLUTE AUTO 1.44 K/mm3 (0.84-5.20); LYMPHOCYTES PERCENT AUTO 13 % (21-46); MONOCYTES ABSOLUTE AUTO 1.16 K/mm3 (0.16-1.47); MONOCYTES PERCENT AUTO 10 % (4-13); Mean Corpuscular HGB Conc 32.7 g/dL (31.5-36.5); Mean Corpuscular Volume 89 fL (80-100); NEUTROPHILS ABSOLUTE AUTO 8.28 K/mm3 (1.96-9.15); NEUTROPHILS PERCENT AUTO 73 % (41-73); NRBC ABSOLUTE 0.00 K/mm3 (0.00-0.02); NRBC Auto 0.0 /100 WBC (0.0-0.2); Platelet Count 362 K/mm3 (150-400); RDW Coefficient Variation 13.0 % (11.7-14.2); RDW Standard Deviation 42.5 fL (35.1-46.3)
[2025-06-29 15:31] LABS: Alanine Aminotransfer (ALT/SGP 26.0 U/L (12-78); Albumin, Blood 2.4 g/dL (3.4-5.0); Albumin/Globulin Ratio 0.6 (0.8-1.8); Anion Gap 8.0 mmol/L (3-11); Aspartate Aminotrans (AST/SGOT 19.0 U/L (12-37); Bilirubin, Total 0.6 mg/dL (0.1-1.0); Blood Urea Nitrogen 12.0 mg/dL (8-24); CO2, Blood 27.0 mmol/L (21-32); Calcium, Blood 9.0 mg/dL (8.5-10.1); Chloride, Blood 103.0 mmol/L (98-108); Creatinine, Blood 0.84 mg/dL (0.40-1.00); Globulin, Blood 3.7 g/dL (2.2-4.0); Glucose, Blood 121.0 mg/dL (70-99); Potassium, Blood 3.3 mmol/L (3.5-5.5); Sodium, Blood 135.0 mmol/L (136-145); Total Protein, Blood 6.1 g/dL (6.4-8.2)
[2025-06-29 15:50] LABS: Source, Urine Clean Catch
[2025-06-29 15:52] LABS: Bilirubin, Urine Neg (Neg); Glucose Qualitative, Urine Neg (Neg); Ketones, Urine Neg (Neg); Leukocyte Esterase, Urine 3+ (Neg); Protein, Urine 1+ (Neg); Specific Gravity, Urine 1.010 (1.003-1.022); Urobilinogen, Urine NORM (Normal)
[2025-06-29] MEDS ORDERED: NS 1,000 ML IV SCH ×2 (15:55→18:10)
[2025-06-29] MEDS ORDERED: CefTRIAXone Sodium 2,000 MG in NS 100 ML IV ONE (15:55)
[2025-06-29 16:12] LABS: Color, Urine Pale Yellow (P-Yellow); White Blood Cells, Urine 25-50 /hpf (0-5)
[2025-06-29] MEDS ORDERED: Ondansetron HCl 2 MG / ML 2ML Vial IV PRN (18:10)
[2025-06-29] MEDS ORDERED: Albuterol 2.5 MG/3 ML VIAL INH PRN (18:15)
[2025-06-29] MEDS ORDERED: FLU VACC TS2025(65UP)/MF59C/PF 45 MCG/0.5 ML SYRINGE IM SCH (18:20)
[2025-06-29 19:48] VITALS: BP 135/69
[2025-06-29] MEDS ORDERED: NITR.4SL SL (20:00)
[2025-06-29] MEDS ORDERED: Prinivil10 MG PO (20:00)
[2025-06-29] MEDS ORDERED: POTASSIUM GLUCO90 M1 PO (20:10)
[2025-06-29] MEDS ORDERED: TIMO.5OPSO RIGHTEYE (20:11)
[2025-06-29] MEDS ORDERED: TRELEGY ELLIPT1 EACH INH (20:12)
[2025-06-29] MEDS ORDERED: ASCO500 PO (20:15)
[2025-06-29] MEDS ORDERED: TOCO1000 PO (20:16)
[2025-06-29] MEDS ORDERED: VITAMIN A PO (20:17)
[2025-06-29] MEDS ORDERED: Lactobacil 2-S.Thermo-Bifido 1 1 Cap PO SCH (21:00)
[2025-06-30] MEDS ORDERED: CeFAZolin Sodium 2,000 MG in NS 100 ML IV SCH
[2025-06-30] MEDS ORDERED: NS 250 ML IV PRN (00:40)
--- NOTE | 2025-06-30 01:05 | NUR ---
ADMIT NOTE PT ADMIT FROM ED FOR BACTEREMIA FOLLOWING POSITIVE BLOOD CULTURES FOR E. COLI. PT A&OX4, VSS. PT MED REC COMPLETED USING PT PROVIDED MED LIST. PT STATES THIS IS THE MOST ACCURATE AND UP TO DATE MED LIST. COPY OBTAINED AND PLACED IN CHART. DURING ADMISSION HX, PT STATED SHE WAS A LIMITED CODE, MEDICATION ONLY AND HAS A POLST FOR THIS. CHART STATED FULL CODE. UNABLE TO FIND POLST IN CHART. PROVIDER NOTIFIED. PT NOW LIMITED CODE, MEDICATION ONLY. PT ARRIVED ON UNIT W/ RAC IV AND LFA IV. RAC IV NOT ABLE TO FLUSH AND REMOVED. LFA IV WNL. PT ALSO REFUSED 2 RN HTT SKIN CHECK. PT UNDERSTANDS RISKS/BENEFITS AND STATES THAT SHE GOES TO A SKIN DOCTOR AND THAT THERE WAS NO NEED FOR THIS ASSESSMENT. PROVIDER NOTIFIED. INFECTION CONTROL UNABLE TO BE REACHED THIS PM. SINCE PT ARRIVED FOR POS BLOOD CULTURE FOR E COLI AND LAB UNABLE TO CLARIFY, PT PLACED ON CONTACT PRECAUTIONS OUT OF AN ABUNDANCE OF CAUTION. INFECTION CONTROL TO BE CONTACTED DURING AM FOR CLARIFICATION. BED RAILS UP X 2, BED IN LOWEST POSITION, BED WHEELS LOCKED, PERSONAL BELONGINGS AND CALL LIGHT WITHIN REACH FOR SAFETY.
[2025-06-30 03:15] VITALS: BP 125/69
--- NOTE | 2025-06-30 03:57 | NUR ---
STATE AUDITOR SUMMARY PT A&OX4, VSS. ABLE TO EXPRESS NEEDS EFFECTIVELY. NO ACUTE CHANGES SINCE ADMISSION. REMAINS ON CONTACT PRECAUTIONS FOR E COLI OUT OF AN ABUNDANCE OF CAUTION UNTIL INFECTION CONTROL CAN BE CONTACTED. HAS BEEN ASLEEP FOR MOST OF THE SHIFT SINCE ADMSSION. CHEST RISE/RESPIRATIONS NOTED. UP INTERMITTENTLY TO USE RESTROOM AND CHANGE PADS W/ SBA FROM COMPENSATION AND BENEFITS MANAGER FOR LINES/CORDS AND WEAKNESS. BED RAILS UP X 2, BED IN LOWEST POSITION, BED WHEELS LOCKED, PERSONAL BELONGINGS AND CALL LIGHT WITHIN REACH FOR SAFETY.
[2025-06-30 05:11] LABS: Hematocrit 33.5 % (33.0-51.0); Hemoglobin 10.9 g/dL (11.5-16.0); IMMATURE RETIC FRACTION 16.40 % (2.3-16.0); Mean Corpuscular HGB Conc 32.5 g/dL (31.5-36.5); Mean Corpuscular Volume 91 fL (80-100); NRBC ABSOLUTE 0.00 K/mm3 (0.00-0.02); NRBC Auto 0.0 /100 WBC (0.0-0.2); Platelet Count 387 K/mm3 (150-400); RDW Coefficient Variation 12.9 % (11.7-14.2); RDW Standard Deviation 42.9 fL (35.1-46.3); RETIC HGB EQUIVALENT 29.20 pg (28.20-36.60); RETICULOCYTE ABSOLUTE 0.0539 M/mm3 (0.0200-0.1100); RETICULOCYTE COUNT PERCENT 1.47 % (0.50-2.50)
[2025-06-30 05:44] LABS: Anion Gap 9.0 mmol/L (3-11); Blood Urea Nitrogen 11.0 mg/dL (8-24); CO2, Blood 27.0 mmol/L (21-32); Calcium, Blood 9.0 mg/dL (8.5-10.1); Chloride, Blood 106.0 mmol/L (98-108); Creatinine, Blood 0.83 mg/dL (0.40-1.00); Ferritin, Serum 466.0 ng/mL (8-252); Glucose, Blood 108.0 mg/dL (70-99); Potassium, Blood 3.5 mmol/L (3.5-5.5); Sodium, Blood 138.0 mmol/L (136-145); Total Iron Binding Capacity 169.0 ug/dL (250-450)
[2025-06-30 07:39] VITALS: BP 131/69
[2025-06-30] MEDS ORDERED: Cyanocobalamin/Fa/Pyridoxine 1 Tablet PO SCH (09:00)
[2025-06-30] MEDS ORDERED: Enoxaparin 40 MG/0.4 ML SYR SC SCH (09:00)
[2025-06-30] MEDS ORDERED: Formoterol/Mometasone MDI 5/200 mcg 13 GM INH SCH (12:15)
[2025-06-30] MEDS ORDERED: Cholecalciferol 1000 Unit Tablet (=25MCG) PO SCH (13:00)
[2025-06-30] MEDS ORDERED: Timolol 0.25% Opth Soln 5 ml RIGHTEYE SCH (13:00)
[2025-06-30 15:59] VITALS: BP 130/70
--- NOTE | 2025-06-30 19:19 | NUR ---
SHIFT SUMMARY PT IS A/OX4. INDEPENDENT IN THE ROOM. NO ACUTE CHANGES THROUGHOUT THIS SHIFT. CONTINUING IV ANTIBIOTICS PER NOV. PT REPORTS FEELING MUCH BETTER SINCE ADMISSION. PT IS PLEASANT AND COOPERATIVE WITH CARE AND CALLS APPROPRIATELY USING THE CALL LIGHT.
[2025-06-30 20:01] VITALS: BP 130/79
[2025-06-30] MEDS ORDERED: Latanoprost 0.005% Opth Soln 2.5 ML BOTHEYES SCH (21:00)
--- NOTE | 2025-07-01 03:39 | NUR ---
INSTALLER APPRENTICE SUMMARY PT A&OX4, VSS. PLEASANT AND ABLE TO COMMUNICATE NEEDS EFFECTIVELY. NO ACUTE CHANGES THIS SHIFT. PT HAS BEEN ASLEEP FOR THE GREATER HALF OF THE SHIFT. CHEST RISE/RESPIRATIONS NEEDED. UP INTERMITTENTLY TO RESTROOM W/ SBA FOR LINES. CONTINUING TO RECEIVE CEFAZOLIN Q8H PER EMAR. BED RAILS UP X 2, BED IN LOWEST POSITION, BED WHEELS LOCKED, PERSONAL BELONGINGS AND CALL LIGHT WITHIN REACH FOR SAFETY.
[2025-07-01 04:06] VITALS: BP 149/70
[2025-07-01 05:44] LABS: BASOPHILS ABSOLUTE AUTO 0.10 K/mm3 (0.00-0.23); BASOPHILS PERCENT AUTO 2 % (0-2); EOSINOPHILS ABSOLUTE AUTO 0.50 K/mm3 (0.00-0.68); EOSINOPHILS PERCENT AUTO 8 % (0-6); Hematocrit 31.8 % (33.0-51.0); Hemoglobin 10.0 g/dL (11.5-16.0); IMMATURE GRAN ABSOLUTE AUTO 0.05 K/mm3 (0.00-0.10); IMMATURE GRAN PERCENT AUTO 1 % (0-1); LYMPHOCYTES ABSOLUTE AUTO 1.68 K/mm3 (0.84-5.20); LYMPHOCYTES PERCENT AUTO 25 % (21-46); MONOCYTES ABSOLUTE AUTO 0.79 K/mm3 (0.16-1.47); MONOCYTES PERCENT AUTO 12 % (4-13); Mean Corpuscular HGB Conc 31.4 g/dL (31.5-36.5); Mean Corpuscular Volume 94 fL (80-100); NEUTROPHILS ABSOLUTE AUTO 3.58 K/mm3 (1.96-9.15); NEUTROPHILS PERCENT AUTO 53 % (41-73); NRBC ABSOLUTE 0.00 K/mm3 (0.00-0.02); NRBC Auto 0.0 /100 WBC (0.0-0.2); Platelet Count 382 K/mm3 (150-400); RDW Coefficient Variation 12.9 % (11.7-14.2); RDW Standard Deviation 44.3 fL (35.1-46.3)
[2025-07-01 06:11] LABS: Anion Gap 9.0 mmol/L (3-11); Blood Urea Nitrogen 10.0 mg/dL (8-24); CO2, Blood 26.0 mmol/L (21-32); Calcium, Blood 8.5 mg/dL (8.5-10.1); Chloride, Blood 108.0 mmol/L (98-108); Creatinine, Blood 0.81 mg/dL (0.40-1.00); Glucose, Blood 105.0 mg/dL (70-99); Potassium, Blood 3.6 mmol/L (3.5-5.5); Sodium, Blood 139.0 mmol/L (136-145)
[2025-07-01 08:08] VITALS: BP 112/66
[2025-07-01] MEDS ORDERED: Cyanocobalamin 1000 MCG/ML 1ML Vial IM SCH (09:00)
[2025-07-01] MEDS ORDERED: OMEP20ER PO (13:42)
[2025-07-01] MEDS ORDERED: OXYB5 PO (13:43)
[2025-07-01] MEDS ORDERED: ALBU90OI INH (13:51)
[2025-07-01 15:20] VITALS: BP 112/63
--- NOTE | 2025-07-01 18:40 | NUR ---
SHIFT SUMMARY PATIENT ALERT AND ORIENTED X4, MAKE NEEDS KNOWN. PATIENT MEDICATED PER EMAR. TOLERATING PO, VOIDING, AND DENIES PAINPATIENT PLEASANT AND COOPERATIVE DURING CARE. NO ACUTE CHANGE DURING THIS SHIFT. VITAL SIGNS STABLE. SELF REPOSITIONED THROUGHOUT SHIFT. CALL LIGHT WITHIN REACH. BED LOCKED AND IN LOWEST POSITION.
[2025-07-01 20:19] VITALS: BP 103/60
[2025-07-02 04:23] VITALS: BP 127/77
--- NOTE | 2025-07-02 04:31 | NUR ---
SHIFT SUMMARY PT IS A&OX4, PLEASANT AND COOPERATIVE WITH CARE. PT IS RECEIVING ABX FOR BACTERMIA. PT DENIES POLYURIA, FREQUENCY, OR URGENCY. PT IS INDEPENDENT IN THE ROOM, VOIDING APPROPRIATELY, AND VSS. PT RESTED T/O SHIFT, WITH EVEN AND UNLABORED RESPIRATIONS, AND CALL LIGHT WITHIN REACH.
[2025-07-02 07:42] VITALS: BP 140/72
[2025-07-02] MEDS ORDERED: SULTRIDS PO (12:44)
[2025-07-02] MEDS ORDERED: VISBIOME 112.51 EACH PO (12:44)
--- NOTE | 2025-07-02 13:26 | NUR ---
PT DISCHARGED 1310 WITH DC INSTRUCTIONS. PT STATES SHE IS FINALLY FEELING BETTER AFTER 5 WEEKS OF FEELING FLU SS. PT IS INDEPENDANT AMBULATING IN ROOM, STEADY ON FEET. RX TO [facility], AWARE SHE IS TO COMPLETE ALL OF ABX AND START FIRST DOSE THIS PM. WHEELCHAIR OUT TO HER OWN CAR, SHE IS ABLE TO DRIVE HOME.
== END 2025-07-02 13:08 | disposition home or self-care (01) | DRG 690 ==
LOC: ER 14:11 → MEDS 18:09
PROVIDERS: Nurse Practitioner Acute Care; Student in an Organized Health Care Education/Training Program; ADMIT Student in an Organized Health Care Education/Training Program
DX: N39.0 Urinary tract infection, site not specified (principal); E87.1 Hypo-osmolality and hyponatremia; J45.20 Mild intermittent asthma, uncomplicated; E78.5 Hyperlipidemia, unspecified; K21.9 Gastro-esophageal reflux disease without esophagitis; E87.6 Hypokalemia; I10 Essential (primary) hypertension; R32 Unspecified urinary incontinence; B96.89 Other specified bacterial agents as the cause of diseases classified elsewhere; H40.9 Unspecified glaucoma; D51.9 Vitamin B12 deficiency anemia, unspecified; B96.20 Unspecified Escherichia coli [E. coli] as the cause of diseases classified elsewhere; Z79.82 Long term (current) use of aspirin; Z79.51 Long term (current) use of inhaled steroids; Z79.52 Long term (current) use of systemic steroids; Z79.899 Other long term (current) drug therapy; Z87.19 Personal history of other diseases of the digestive system; Z90.89 Acquired absence of other organs; Z98.51 Tubal ligation status; Z95.1 Presence of aortocoronary bypass graft; Z87.01 Personal history of pneumonia (recurrent); Z86.19 Personal history of other infectious and parasitic diseases; Z23 Encounter for immunization
CPT/HCPCS: 36415; 80048; 80053; 81001; 82728; 82746; 83540; 83550; 83605; 85025; 85027; 85045; 86340; 87077; 87086; 87186; 93005; 93010; 94640; 94664; 94760; 96365; 96367; 99284-25; A9270; J0690; J0696; J1650; J3420; J3480; J7030; J7050

== ENCOUNTER → 2025-08-12 | Outpatient (CLI) | payer OTHER ==
[~2025-08-12] MED LIST changes: +ALBU90OI INH; +ASCO500 PO; +OMEP20ER PO; +OXYB5 PO; +POTASSIUM GLUCO90 M1 PO; +Prinivil10 MG PO; +SULTRIDS PO; +TIMO.5OPSO RIGHTEYE; +TOCO1000 PO; +TRELEGY ELLIPT1 EACH INH; +VISBIOME 112.51 EACH PO; +VITAMIN A PO
[2025-08-12 15:43] LABS: Source, Urine Clean Catch
[2025-08-12 18:04] LABS: Bilirubin, Urine Neg (Neg); Color, Urine Yellow (P-Yellow); Glucose Qualitative, Urine Neg (Neg); Ketones, Urine Neg (Neg); Leukocyte Esterase, Urine 3+ (Neg); Protein, Urine 1+ (Neg); Specific Gravity, Urine 1.015 (1.003-1.022); Urobilinogen, Urine NORM (Normal)
[2025-08-12 18:24] LABS: White Blood Cells, Urine 25-50 /hpf (0-5)
== END ==
LOC: LAB SHORT 09:10 → LAB 09:10
DX: N39.0 Urinary tract infection, site not specified (principal); N39.46 Mixed incontinence
CPT/HCPCS: 81001; 87077; 87086; 87186